=== PATIENT | male | born 1945 | race Caucasian/White ===

== ENCOUNTER 2017-12-15 10:00 | Outpatient (CLI) ==
[2016-03-09 18:05] VITALS: BMI 31.5
[2017-12-15] MEDS ORDERED: PROLIA SUBCUT STA (10:11)
[2017-12-15 10:14] VITALS: BP 125/74; TEMP 98.1
== END 2017-12-15 10:01 | disposition home or self-care (01) ==
LOC: OPMED 10:00
PROVIDERS: ATTEND Internal Medicine
DX: M81.0 Age-related osteoporosis without current pathological fracture (principal)
CPT/HCPCS: 96372

== ENCOUNTER 2018-06-23 13:10 | Outpatient (CLI) | payer OTHER ==
[2016-03-09 18:05] VITALS: BMI 31.5
[2018-06-23 13:46] VITALS: BP 112/63; TEMP 98.3
[2018-06-23] MEDS ORDERED: PROLIA SUBCUT STA (13:50)
== END 2018-06-23 13:11 | disposition home or self-care (01) ==
LOC: OPMED 13:10
PROVIDERS: ATTEND Internal Medicine
DX: M81.0 Age-related osteoporosis without current pathological fracture (principal)
CPT/HCPCS: 96372

== ENCOUNTER 2018-10-28 06:30 | Outpatient (CLI) | payer OTHER ==
[2016-03-09 18:05] VITALS: BMI 31.5
[2018-10-28] MEDS ORDERED: DOBUTAMINE 500 MG-D5W 250 ML 250 ML IV ONE (07:33)
[2018-10-28] MEDS ORDERED: ATROPINE SULFATE PFS ONE (07:33)
[2018-10-28] MEDS ORDERED: DOBUTAMINE 500 MG-D5W 250 ML 500 MG in PREMIX 250 ML D5W 1 BAG IV SCH (08:36)
--- NOTE | 2018-10-31 09:52 | ECHO2D ---
Date of Exam: 10/28/18 Ordering Physician: DR. OLY LORENZANA Room #: OP Reason for Echo: SOB, PAC, SURGICAL CLEARANCE M-Mode Normal Adult Results LV Dimensions Normal Adult Results AoV Opening excursions >1.6 >1.6 LVEDD-base- 3.5-5.8 6.5 Ao root dimensions 2.0-3.7 3.6 LVESD-base- 3.1-4.6 L. Atrium dimensions 1.9-3.8 5.9 Post. Wall thickness 0.8-1.1 1.4 IV septum (thickness) 0.7-1.2 1.5 Post. Wall excursion 0.72-1.3 NORMAL Septal motion NORMAL Systolic motion R. Ventricular cavity 1.5-2.0 NORMAL LVEF 60% 58% Paradoxical septal wall motion NORMAL 2-D : NORMAL LEFT VENTRICULAR CONTRACTILITY--ENLARGED LEFT VENTRICLE AND LEFT ATRIAL CAVITIES, NO EFFUSION, NO THROMBUS, NORMAL VALVES M-MODE: MV: NORMAL AV: NORMAL TV: NORMAL PV: CHAMBER SIZE: ENLARGED LEFT ATRIAL AND LEFT VENTRICLE CAVITY WALL MOTION: NORMAL PERICARDIUM: NORMAL INTERPRETATION: 1. LEFT VENTRICULAR HYPERTROPHY WITH ENLARGED LEFT ATRIAL CAVITY 2. ENLARGED LEFT VENTRICLE CAVITY 3. NORMAL LEFT VENTRICLE CONTRACTILITY 4. NORMAL VALVES MTDD
--- NOTE | 2018-10-31 10:01 | DOBSTECHO ---
Date of Test: 10/28/18 Ordering Physician: DR. OLY LORENZANA Occupation: RETIRED Reason for Examination: SOB, PAC, SURGICAL CLEARANCE Current Medications: DICLOFENAC, CARTIA, ATORVASTATIN, SPIRIVA, TAMSULOSIN, PANTOPREZOLE, OXYBUTYNIN Height: 75" Weight: 240 LBS Target Heart Rate: 124/147 S-T Segment Stage Time HR BPM BP MMHG Rhythm +/- Elevation Depression Symptoms Control Sitting 50 BPM 132/76 SR X NONE Dobutamine 250mg/D5W X 5cmg/KG/mn X 10cmg/KG/mn 3:00 61 BPM SR X NONE 15cmg/KG/mn 2:00 72 BPM 120/68 SR X NONE 20cmg/KG/mn 2:00 79 BPM 132/60 SR X NONE 25cmg/KG/mn 2:00 90 BPM SR X NONE 30cmg/KG/mn 2:00 96 BPM 128/62 SR X NONE 35cmg/KG/mn 1:08 108 BPM SR X NONE 40cmg/KG/mn 3 MIN POST INFUSION z 98 BPM 130/70 SR X NONE 6 MIN POST INFUSION z 84 BPM SR X NONE DURATION OF INFUSION 12:08 MAXIMUM HEART RATE REACHED 108 BPM Interpretation: 1. NO EVIDENCE OF ISCHEMIA BY ST-T WAVE CHANGES FROM RESTING HEART RATE 50 BPM TO 108 BPM WITH DOBUTAMINE INFUSION 2. NO CHEST PAIN OR DISCOMFORT 3. NORMAL LEFT VENTRICULAR CONTRACTILITY--RESTING AND WITH DOBUTAMINE INFUSION MTDD
--- NOTE | 2018-10-31 10:05 | ECHOSTRESS ---
Date of Exam: 10/28/18 Ordering Physician: DR. OLY LORENZANA Reason for Echo: SOB, PAC, SURGICAL CLEARANCE, DOBUTAMINE STRESS --NO ISCHEMIA M-Mode Normal Adult Results LV Dimensions Normal Adult Results AoV Opening excursions >1.6 LVEDD-base- 3.5-5.8 Ao root dimensions 2.0-3.7 LVESD-base- 3.1-4.6 L. Atrium dimensions 1.9-3.8 Post. Wall thickness 0.8-1.1 IV septum (thickness) 0.7-1.2 Post. Wall excursion 0.72-1.3 Septal motion Systolic motion R. Ventricular cavity 1.5-2.0 LVEF 60% Paradoxical septal wall motion 2-D: NORMAL LEFT VENTRICULAR CONTRACTILITY--RESTING AND WITH DOBUTAMINE INFUSION M-MODE: MV: AV: TV: PV: CHAMBER SIZE: WALL MOTION: NORMAL LEFT VENTRICULAR CONTRACTILITY--RESTING AND WITH DOBUTAMINE INFUSION PERICARDIUM: INTERPRETATION: 1. NORMAL LEFT VENTRICULAR CONTRACTILITY--RESTING AND WITH DOBUTAMINE INFUSION MTDD
== END 2018-10-28 06:31 | disposition home or self-care (01) ==
LOC: CAR 06:30
PROVIDERS: ATTEND Internal Medicine
DX: Z01.810 Encounter for preprocedural cardiovascular examination (principal); R06.02 Shortness of breath
CPT/HCPCS: 93005; 93010

== ENCOUNTER 2019-02-03 09:09 | Outpatient (CLI) | payer OTHER ==
[2016-03-09 18:05] VITALS: BMI 31.5
== END 2019-02-03 09:27 | disposition short-term general hospital (02) ==
LOC: AMBL 09:09
PROVIDERS: ATTEND Emergency Medicine
DX: R41.82 Altered mental status, unspecified (principal); T40.2X5A Adverse effect of other opioids, initial encounter; Z98.890 Other specified postprocedural states

== ENCOUNTER 2020-12-06 11:02 | Inpatient (IN) ==
[2020-12-06] MEDS ORDERED: VENTOLIN HFA (PER PUFF-WITH SPACER) IH STA (11:43)
[2020-12-06 12:05] LABS: BASOPHILS % (AUTO) 0.2 % (0.0-3.0); EOSINOPHILS % (AUTO) 0.1 % (0.0-7.0); HEMATOCRIT 43.5 % (42.0-52.0); HEMOGLOBIN 14.9 g/dl (14.0-18.0); IMMATURE GRANULOCYTE % (AUTO) 0.2 % (0.0-5.0); LYMPHOCYTES # (AUTO) 0.6 K/uL (0.60-3.4); LYMPHOCYTES % (AUTO) 4.8 (10.0-50.0); MEAN CORPUSCULAR HEMOGLOBIN 31.4 pg (27.0-31.0); MEAN CORPUSCULAR HGB CONC 34.3 (31.8-35.4); MEAN CORPUSCULAR VOLUME 91.8 fl (80.0-94.0); MONOCYTES # (AUTO) 0.9 K/uL (0.4-2.0); NEUTROPHILS # (AUTO) 10.6 K/ul (2.0-6.9); NEUTROPHILS % (AUTO) 87.7 % (42.2-75.2); PLATELET COUNT 156 10^3/uL (140-440); RDW COEFFICIENT OF VARIATION 13.7 % (11.6-14.8); RED BLOOD COUNT 4.74 10^6/ul (4.70-6.10); WHITE BLOOD COUNT 12.07 K/ul (4.2-10.2)
[2020-12-06 12:10] LABS: ABG PH 7.45 (7.35-7.45)
[2020-12-06 12:17] LABS: ALANINE AMINOTRANSFERASE 22.7 U/L (0-50); ALBUMIN 3.81 g/dL (3.5-5.0); ALKALINE PHOSPHATASE 101.9 U/L (56-119); ASPARTATE AMINO TRANSFERASE 26.4 U/L (17-59); BILIRUBIN,TOTAL 1.14 mg/dL (0.2-1.3); BLOOD UREA NITROGEN 26.1 mg/dL (9-20); CALCIUM 9.53 mg/dL (8.4-10.2); CARBON DIOXIDE 25.7 mmol/L (22-30.0); CHLORIDE 103.8 mmol/L (98-107); CREATINE KINASE 42.7 U/L (55-170); CREATININE 0.84 mg/dL (0.60-1.10); POTASSIUM 3.97 mmol/L (3.5-5.1); SODIUM 137.9 mmol/L (134.5-145); TOTAL PROTEIN 6.27 g/dL (6.3-8.2)
[2020-12-06 12:31] LABS: TROPONIN I < 0.012 ng/ml (0.0000-0.120)
[2020-12-06 12:39] LABS: ERYTHROCYTE SEDIMENTATION RATE 2 mm/hr (0-15)
[2020-12-06] MEDS ORDERED: SODIUM CHLORIDE 1,000 ML IV STA (13:33)
--- NOTE | 2020-12-06 14:36 | CT ---
EXAM: CTA CHEST HISTORY: Shortness of breath TECHNIQUE: CTA chest with intravenous contrast. PE protocol. Multiplanar images were provided with 3-D reconstructions. COMPARISON: None FINDINGS: No pulmonary arterial filling defect. The caliber of the pulmonary arteries is dilated with the righ t main vessel measuring 3.6 cm suggesting a degree of pulmonary arterial hypertension. There is at l east mild atherosclerotic disease. Cardiomegaly is present. There is no pericardial effusion. Prom inent hilar lymph nodes are nonspecific. The lungs reveal severe infiltrates/consolidations on the right more noticeable in the lower lobe and otherwise patchy infiltrates bilaterally becoming more moderate in the left base. There is at least mild central vascular congestion. No pleural fluid or pneumothorax is seen. Bones reveal degenerative changes of the spine with mild scoliosis. Liver demonstrates a few scatter ed low attenuation lesions which appear stable since prior CT abdomen and pelvis dated 10/14/2012, champ arevalo representing cysts. IMPRESSION: 1. No pulmonary arterial thromboembolism. A component of pulmonary arterial hypertension is likely. 2. Severe consolidations/infiltrates especially involving the right lower lobe suggesting pneumonia. Underlying atelectasis may be a contributor. 3. Cardiomegaly. 4. Atherosclerosis. All CT scans are performed using dose optimization techniques as appropriate to the performed exam an d include at least one of the following: Automated exposure control, adjustment of the mA and/or kV according t o size, and the use of iterative reconstruction technique.
[2020-12-06] MEDS ORDERED: ZITHROMAX 500 MG in SODIUM CHLORIDE 250 ML IV STA (14:44)
[2020-12-06] MEDS: ROCEPHIN 1 GM/50 ML D5W 1 GM/50 ML BAG IV SCH (15:12)
[2020-12-06 15:20] LABS: BILIRUBIN,URINE Negative (NEGATIVE); CLARITY,URINE Clear (CLEAR); COLOR,URINE Amber (YELLOW); GLUCOSE, URINE (UA) Negative (NEGATIVE); KETONES,URINE Trace (NEGATIVE); LEUKOCYTE ESTERASE ,URINE Negative (NEGATIVE); NITRITE,URINE Negative (NEGATIVE); PH,URINE 5.5 (5-9); PROTEIN,URINE Negative (NEGATIVE); URINE, BLOOD Negative (NEGATIVE)
[2020-12-06] MEDS ORDERED: SOLU-MEDROL 125 MG IVP STA (15:21)
[2020-12-06] MEDS ORDERED: ZOFRAN 4 MG/2 ML IVP PRN (15:21)
[2020-12-06] MEDS ORDERED: ZITHROMAX PO STA (15:21)
[2020-12-06 15:25] LABS: SQUAMOUS EPITHELIAL CELL,UR NOT PRESENT (0-5)
[2020-12-06 15:26] LABS: MUCUS,URINE 2+ (NOT PRESENT); URINE WBC, MICROSCOPIC 0-2 (0-2)
[2020-12-06 15:30] LABS: AMPHETAMINE SCREEN,URINE NEGATIVE (NEGATIVE); BARBITURATE SCREEN,URINE NEGATIVE (NEGATIVE); BENZODIAZEPINES SCREEN,URINE NEGATIVE (NEGATIVE); CANNABINOID SCREEN,URINE NEGATIVE (NEGATIVE); COCAIN SCREEN,URINE NEGATIVE (NEGATIVE); METHADONE URINE SCREEN NEGATIVE (NEGATIVE); METHAMPHETAMINES SCREEN,URINE NEGATIVE (NEGATIVE); OPIATE SCREEN,URINE NEGATIVE (NEGATIVE); OXYCODONE URINE SCREEN NEGATIVE (NEGATIVE); PHENCYCLIDINE SCREEN,URINE NEGATIVE (NEGATIVE); PROPOXYPHENE URINE SCREEN NEGATIVE (NEGATIVE); TRICYCLIC ANTIDEPRESSANTS URIN NEGATIVE (NEGATIVE)
[2020-12-06] MEDS: SODIUM CHLORIDE 0.9%-KCL 20 MEQ 1,000 ML IV SCH (17:09)
[2020-12-06] MEDS: LOVENOX SUBCUT SCH ×2 (17:15→17:17)
[2020-12-06 17:50] VITALS: BMI 31.7
[2020-12-06] MEDS: VENTOLIN HFA (PER PUFF-WITH SPACER) IH SCH (19:45)
[2020-12-06] MEDS ORDERED: TYLENOL PO PRN (19:53)
[2020-12-06] MEDS: TAMBOCOR PO SCH (20:14)
[2020-12-06] MEDS: MYRBETRIQ PO SCH (20:14)
[2020-12-06] MEDS: DITROPAN PO SCH (20:14)
[2020-12-06] MEDS ORDERED: NEURONTIN PO SCH (21:00)
[2020-12-06] MEDS ORDERED: XARELTO PO SCH (21:00)
[2020-12-06] MEDS ORDERED: NEURONTIN PO STA (22:33)
[2020-12-07] MEDS: VENTOLIN HFA (PER PUFF-WITH SPACER) IH SCH ×4 (04:45→19:17)
[2020-12-07 05:18] LABS: HEMATOCRIT 39.7 % (42.0-52.0); HEMOGLOBIN 13.5 g/dl (14.0-18.0); IMMATURE GRANULOCYTE % (AUTO) 0.3 % (0.0-5.0); LYMPHOCYTES # (AUTO) 0.7 K/uL (0.60-3.4); LYMPHOCYTES % (AUTO) 7.4 (10.0-50.0); MEAN CORPUSCULAR VOLUME 91.3 fl (80.0-94.0); MONOCYTES # (AUTO) 0.3 K/uL (0.4-2.0); MONOCYTES % (AUTO) 3.1 (0-10); NEUTROPHILS # (AUTO) 8.1 K/ul (2.0-6.9); NEUTROPHILS % (AUTO) 89.2 % (42.2-75.2); PLATELET COUNT 154 10^3/uL (140-440); RDW COEFFICIENT OF VARIATION 13.7 % (11.6-14.8); RED BLOOD COUNT 4.35 10^6/ul (4.70-6.10); WHITE BLOOD COUNT 9.11 K/ul (4.2-10.2)
[2020-12-07 05:36] LABS: ALANINE AMINOTRANSFERASE 20.2 U/L (0-50); ALBUMIN 3.49 g/dL (3.5-5.0); ALKALINE PHOSPHATASE 88.3 U/L (56-119); BILIRUBIN,TOTAL 0.97 mg/dL (0.2-1.3); BLOOD UREA NITROGEN 20.3 mg/dL (9-20); CALCIUM 9.11 mg/dL (8.4-10.2); CARBON DIOXIDE 24.7 mmol/L (22-30.0); CHLORIDE 106.4 mmol/L (98-107); CREATININE 0.69 mg/dL (0.60-1.10); GLUCOSE 141.8 mg/dL (74-106); POTASSIUM 4.29 mmol/L (3.5-5.1); SODIUM 135.2 mmol/L (134.5-145); TOTAL PROTEIN 6.01 g/dL (6.3-8.2)
[2020-12-07] MEDS: SODIUM CHLORIDE 0.9%-KCL 20 MEQ 1,000 ML IV SCH (06:02)
[2020-12-07] MEDS: PROTONIX PO SCH (06:02)
[2020-12-07] MEDS ORDERED: CALCIUM 500 + VIT D 5 MCG (200 IU) TABLET PO SCH (09:00)
[2020-12-07] MEDS ORDERED: NON-FORMULARY MEDICATION (Umeclidinium [Incruse Ellipta] 62.5 mcg/actuation Blister With D IH SCH ×2 (09:00)
[2020-12-07] MEDS ORDERED: CALCIUM PHOSPHATE PO SCH (09:00)
[2020-12-07] MEDS ORDERED: ROCEPHIN 1 GM/50 ML D5W 1 GM/50 ML BAG IV SCH (09:00)
[2020-12-07] MEDS ORDERED: NEURONTIN PO SCH (09:00)
[2020-12-07] MEDS ORDERED: [UNRECOGNIZED DRUG - OTHER] PO SCH (09:00)
[2020-12-07] MEDS ORDERED: LUMIGAN 0.03% EACHEYE SCH (09:00)
[2020-12-07] MEDS ORDERED: BIMATOPROST 0.01% OP SCH (09:00)
[2020-12-07] MEDS ORDERED: NON-FORMULARY MEDICATION (Fluticasone Furoate-Vilanterol [Breo Ellipta] 200-25 mcg/dose Bl IH SCH ×2 (09:00)
[2020-12-07] MEDS: CALCIUM 500 + VIT D 5 MCG (200 IU) TABLET PO SCH (09:13)
[2020-12-07] MEDS: NEURONTIN PO SCH ×3 (09:14→20:47)
[2020-12-07] MEDS: TAMBOCOR PO SCH ×2 (09:14→20:48)
[2020-12-07] MEDS: LIPITOR PO SCH (09:14)
[2020-12-07] MEDS: DITROPAN PO SCH ×2 (09:14→20:48)
[2020-12-07] MEDS: MULTIVITAMIN TABLET PO SCH (09:14)
[2020-12-07] MEDS: CARDIZEM CD PO SCH (09:15)
[2020-12-07] MEDS: MYRBETRIQ PO SCH ×2 (09:15→20:48)
[2020-12-07] MEDS: XARELTO PO SCH (09:15)
[2020-12-07] MEDS: ROCEPHIN 1 GM/50 ML D5W 1 GM/50 ML BAG IV SCH (09:21)
[2020-12-07] MEDS: ZITHROMAX PO SCH (14:05)
[2020-12-07] MEDS: SPIRIVA IH SCH (14:05)
[2020-12-07] MEDS: SYMBICORT 160-4.5 MCG INHALER IH SCH (21:32)
[2020-12-07] MEDS: PHENERGAN WITH CODEINE 6.25/10 MG/5 ML PO PRN (21:38)
[2020-12-07] MEDS: SOLU-MEDROL 125 MG IVP SCH (21:38)
[2020-12-08] MEDS: SOLU-MEDROL 125 MG IVP SCH ×5 (01:21→23:53)
[2020-12-08] MEDS: VENTOLIN HFA (PER PUFF-WITH SPACER) IH SCH ×4 (05:00→19:20)
[2020-12-08 05:21] LABS: HEMATOCRIT 39.7 % (42.0-52.0); HEMOGLOBIN 13.5 g/dl (14.0-18.0); IMMATURE GRANULOCYTE # (AUTO) 0.1 (0.0-1.0); IMMATURE GRANULOCYTE % (AUTO) 0.6 % (0.0-5.0); LYMPHOCYTES # (AUTO) 0.7 K/uL (0.60-3.4); LYMPHOCYTES % (AUTO) 7.4 (10.0-50.0); MEAN CORPUSCULAR HEMOGLOBIN 31.1 pg (27.0-31.0); MEAN CORPUSCULAR VOLUME 91.5 fl (80.0-94.0); MONOCYTES # (AUTO) 0.3 K/uL (0.4-2.0); MONOCYTES % (AUTO) 3.3 (0-10); NEUTROPHILS % (AUTO) 88.7 % (42.2-75.2); PLATELET COUNT 164 10^3/uL (140-440); RDW COEFFICIENT OF VARIATION 13.9 % (11.6-14.8); RED BLOOD COUNT 4.34 10^6/ul (4.70-6.10); WHITE BLOOD COUNT 9.02 K/ul (4.2-10.2)
[2020-12-08] MEDS: PROTONIX PO SCH (05:34)
[2020-12-08] MEDS: PHENERGAN WITH CODEINE 6.25/10 MG/5 ML PO PRN ×3 (05:35→21:55)
[2020-12-08 05:37] LABS: ALANINE AMINOTRANSFERASE 20.3 U/L (0-50); ALBUMIN 3.59 g/dL (3.5-5.0); ALKALINE PHOSPHATASE 105.9 U/L (56-119); ASPARTATE AMINO TRANSFERASE 28.5 U/L (17-59); BILIRUBIN,TOTAL 0.51 mg/dL (0.2-1.3); BLOOD UREA NITROGEN 22.7 mg/dL (9-20); CALCIUM 9.28 mg/dL (8.4-10.2); CARBON DIOXIDE 25.1 mmol/L (22-30.0); CHLORIDE 104.3 mmol/L (98-107); CREATININE 0.77 mg/dL (0.60-1.10); GLUCOSE 158.6 mg/dL (74-106); POTASSIUM 4.31 mmol/L (3.5-5.1); SODIUM 135.9 mmol/L (134.5-145); TOTAL PROTEIN 6.14 g/dL (6.3-8.2)
[2020-12-08] MEDS: SPIRIVA IH SCH (08:37)
[2020-12-08] MEDS: ROCEPHIN 1 GM/50 ML D5W 1 GM/50 ML BAG IV SCH (08:38)
[2020-12-08] MEDS: SYMBICORT 160-4.5 MCG INHALER IH SCH ×2 (08:38→21:09)
[2020-12-08] MEDS: NEURONTIN PO SCH ×3 (08:38→21:08)
[2020-12-08] MEDS: MYRBETRIQ PO SCH ×2 (08:38→21:08)
[2020-12-08] MEDS: CALCIUM 500 + VIT D 5 MCG (200 IU) TABLET PO SCH (08:38)
[2020-12-08] MEDS: MULTIVITAMIN TABLET PO SCH (08:39)
[2020-12-08] MEDS: DITROPAN PO SCH ×2 (08:39→21:08)
[2020-12-08] MEDS: TAMBOCOR PO SCH ×2 (08:39→21:08)
[2020-12-08] MEDS: LIPITOR PO SCH (08:39)
[2020-12-08] MEDS: ZITHROMAX PO SCH (08:39)
[2020-12-08] MEDS: CARDIZEM CD PO SCH (08:39)
[2020-12-08] MEDS: XARELTO PO SCH (08:40)
[2020-12-08] MEDS: COLACE PO PRN ×2 (12:25→21:07)
[2020-12-08] MEDS: SODIUM CHLORIDE 0.9%-KCL 20 MEQ 1,000 ML IV SCH ×2 (15:17)
[2020-12-08] MEDS: LUMIGAN 0.03% EACHEYE SCH (21:09)
[2020-12-09] MEDS: SODIUM CHLORIDE 0.9%-KCL 20 MEQ 1,000 ML IV SCH (04:22)
[2020-12-09 04:29] LABS: BASOPHILS % (AUTO) 0.1 % (0.0-3.0); HEMATOCRIT 40.1 % (42.0-52.0); HEMOGLOBIN 13.8 g/dl (14.0-18.0); IMMATURE GRANULOCYTE # (AUTO) 0.1 (0.0-1.0); IMMATURE GRANULOCYTE % (AUTO) 0.6 % (0.0-5.0); LYMPHOCYTES # (AUTO) 0.9 K/uL (0.60-3.4); LYMPHOCYTES % (AUTO) 8.9 (10.0-50.0); MEAN CORPUSCULAR HEMOGLOBIN 31.1 pg (27.0-31.0); MEAN CORPUSCULAR HGB CONC 34.4 (31.8-35.4); MEAN CORPUSCULAR VOLUME 90.3 fl (80.0-94.0); MONOCYTES # (AUTO) 0.4 K/uL (0.4-2.0); MONOCYTES % (AUTO) 3.8 (0-10); NEUTROPHILS # (AUTO) 8.3 K/ul (2.0-6.9); NEUTROPHILS % (AUTO) 86.6 % (42.2-75.2); PLATELET COUNT 181 10^3/uL (140-440); RDW COEFFICIENT OF VARIATION 13.8 % (11.6-14.8); RED BLOOD COUNT 4.44 10^6/ul (4.70-6.10); WHITE BLOOD COUNT 9.55 K/ul (4.2-10.2)
[2020-12-09 04:32] LABS: ABG PH 7.42 (7.35-7.45)
[2020-12-09] MEDS: VENTOLIN HFA (PER PUFF-WITH SPACER) IH SCH (04:40)
[2020-12-09 04:44] LABS: ALANINE AMINOTRANSFERASE 22.4 U/L (0-50); ALBUMIN 3.58 g/dL (3.5-5.0); ALKALINE PHOSPHATASE 117.1 U/L (56-119); ASPARTATE AMINO TRANSFERASE 25.9 U/L (17-59); BILIRUBIN,TOTAL 0.59 mg/dL (0.2-1.3); BLOOD UREA NITROGEN 22.8 mg/dL (9-20); CALCIUM 8.68 mg/dL (8.4-10.2); CARBON DIOXIDE 21.9 mmol/L (22-30.0); CREATININE 0.62 mg/dL (0.60-1.10); GLUCOSE 144.6 mg/dL (74-106); POTASSIUM 3.74 mmol/L (3.5-5.1); SODIUM 136.8 mmol/L (134.5-145); TOTAL PROTEIN 6.2 g/dL (6.3-8.2)
[2020-12-09] MEDS: SOLU-MEDROL 125 MG IVP SCH ×3 (05:37→19:43)
[2020-12-09] MEDS: PROTONIX PO SCH ×2 (05:37→17:13)
[2020-12-09] MEDS: PHENERGAN WITH CODEINE 6.25/10 MG/5 ML PO PRN ×3 (07:26→21:14)
--- NOTE | 2020-12-09 08:29 | DI ---
EXAM: Frontal chest HISTORY: Shortness of breath FINDINGS: Compared to 03/09/2016. Cardiomegaly is again seen. There is mild central vascular conge stion suggested. Probable trace pleural effusions. Patchy bibasilar density may represent atelectas is. No visible pneumothorax. IMPRESSION: 1. Cardiomegaly and vascular congestion. Tiny pleural effusions.
[2020-12-09] MEDS: ROCEPHIN 1 GM/50 ML D5W 1 GM/50 ML BAG IV SCH (09:00)
[2020-12-09] MEDS: NEURONTIN PO SCH ×3 (09:00→20:34)
[2020-12-09] MEDS: LIPITOR PO SCH (09:00)
[2020-12-09] MEDS: TAMBOCOR PO SCH ×2 (09:01→20:34)
[2020-12-09] MEDS: CARDIZEM CD PO SCH (09:01)
[2020-12-09] MEDS: CALCIUM 500 + VIT D 5 MCG (200 IU) TABLET PO SCH (09:01)
[2020-12-09] MEDS: MYRBETRIQ PO SCH ×2 (09:01→20:33)
[2020-12-09] MEDS: MULTIVITAMIN TABLET PO SCH (09:01)
[2020-12-09] MEDS: DITROPAN PO SCH ×2 (09:01→20:33)
[2020-12-09] MEDS: SPIRIVA IH SCH (09:02)
[2020-12-09] MEDS: SYMBICORT 160-4.5 MCG INHALER IH SCH (09:04)
[2020-12-09] MEDS: XARELTO PO SCH (09:05)
--- NOTE | 2020-12-09 10:49 | PCM.PROG ---
Attending Provider: ATTENDING PROVIDER: Dr. OLY LORENZANA This patient is seen with Cate Pfeiffer, Nurse Practitioner. DATE OF SERVICE: 12/09/20 SUBJECTIVE: This 75 year old /WHITE M was hospitalized 12/06/20. Resting comfortably in bed. Still significantly short of breath and wheezing. He has b een eating well. Encouraged to get up in the room. REVIEW OF SYSTEMS: CONSTITUTIONAL: No night sweats. No fatigue, malaise, lethargy. No fever or chills. HEENT: Eyes: No visual changes. No eye pain. No eye discharge. ENT: No runny nose. No epistaxis. No sinus pain. No odynophagia. No congestion. RESPIRATORY: Cough, wheezing and shortness of breath. no congestion. No he moptysis. CARDIOVASCULAR: No angina symptoms. No CHF symptoms. No atypical chest pain for CAD. No palpitations. No orthopnea. GASTROINTESTINAL: No abdominal pain. No nausea or vomiting. No diarrhea or constipation. No hematemesis. No hematochezia. GENITOURINARY: No urgency. No frequency. No dysuria. No hematuria. No obstructive symptoms. No discharge. No pain. No significant abnormal bleeding. MUSCULOSKELETAL: No musculoskeletal pain; no joint swelling. NEUROLOGICAL: Awake, alert, oriented to time, place and person. No headache. No neck pain. No syncope. No seizures. No dizziness. PSYCHIATRIC: Not anxious. No depression. No suicidal thoughts. No homicidal thoughts. SKIN: No rash. No lesions. No wounds. ENDOCRINE: No unexplained weight loss. No weight gain. HEMATOLOGIC/LYMPHATIC: No anemia. No purpura. No petechiae. No prolonged or excessive bleeding. No palpable lymph nodes. PHYSICAL EXAMINATION: GENERAL: The patient is awake, alert and oriented, lying/sitting in bed in no distress. VITAL SIGNS: Temperature 98.2 F, Pulse 59, Respiratory Rate 20, BP 122/66, Pulse Ox 98% HEENT: Head normocephalic, atraumatic. Eyes: Extraocular muscles are intact. Pupils are equal, round and reactive to light and accommodation. Ears: No lesions. Nose appeared normal. Throat: No exudate or erythema. NECK: Supple. No JVD, no carotid bruit. No lymphadenopathy or thyromegaly. LUNGS: Diminished breath sounds with bilateral inspiratory and expiratory wheezing. Clear to auscultation. Percussion note normal. Chest symmetrical. HEART: S1, S2, no S3. No murmurs. No cyanosis or clubbing. No ascites. Pulses: Dorsalis pedis and posterior tibial pulses +1 to +2 both sides. ABDOMEN: Soft. Non-tender. Bowel sounds active. No CVA tenderness. No mass felt. EXTREMITIES: No edema. Full range of motion of all extremities, equal. NEUROLOGIC: No focal deficit. Cranial nerves II through XII are grossly intact. No headache. No double vision. SKIN: Not dry. Intact. Turgor-normal. LYMPHATIC: No palpable lymph nodes/no lymphedema. MUSCULOSKELETAL: Normal joints with no swelling. Muscle tone is normal. LAB REVIEW: 12/09/20 04:20 12/09/20 04:20 12/09/20 04:20: Sodium 136.8, Potassium 3.74, Chloride 108.0 H, Carbon Dioxide 21.9 L, Anion Gap 10.64, BUN 22.8 H, Creatinine 0.62, Estimated GFR (MDRD) 126.00, BUN/Creatinine Ratio 36.77, Glucose 144.6 H, Calcium 8.68, Total Bilirubin 0.59, AST 25.9, ALT 22.4, Alkaline Phosphatase 117.1, Total Protein 6.20 L, Albumin 3.58, Globulin 2.62, Albumin/Globulin Ratio 1.36 12/09/20 04:20: WBC 9.55, RBC 4.44 L, Hgb 13.8 L, Hct 40.1 L, MCV 90.3, MCH 31.1 H, MCHC 34.4, RDW Coeff of Amee 13.8, Plt Count 181, Immature Gran % (Auto) 0.6, Neut % (Auto) 86.6 H, Lymph % (Auto) 8.9 L, [place] % (Auto) 3.8, Eos % (Auto) 0.0, Baso % (Auto) 0.1, Neut # (Auto) 8.3 H, Lymph # (Auto) 0.9, [place] # (Auto) 0.4, Eos # (Auto) 0.0, Baso # (Auto) 0.0, Immature Gran # (Auto) 0.1 12/09/20 03:30: Puncture Site Lb, Base Excess -3.1 L, O2 Saturation 88.3 L, ABG pH 7.42, ABG pCO2 33.0 L, ABG pO2 54.0 L*, ABG HCO3 21.4, ABG Total CO2 22.4, James Test +, Hemoglobin 0.5, Oxyhemoglobin 88.3 L, Carboxyhemoglobin 1.9 H, Total Hemoglobin 14.3, FiO2 % 21.0 ASSESSMENT: Please see below. 1. Right lower lobe pneumonia. 2. Acute respiratory failure. PLAN: 1. Increase Protonix to b.i.d. 2. D/C IV fluids. Plan and coordination of the patient's care discussed in the presence of Admissions Clerk and nurse. CONDITION: Stable SCRIBED BY: DARIN WOODALL [employer] scribed while in presence of service performed by Mary Lorenzana/Cate Pfeiffer APRN on 12/09/20 ([id number])
[2020-12-09] MEDS: COLACE PO PRN (13:35)
[2020-12-09] MEDS: DUONEB NEB SCH ×2 (13:57→20:05)
[2020-12-09] MEDS: TYLENOL PO PRN (13:59)
[2020-12-09] MEDS ORDERED: LASIX IVP STA (14:10)
[2020-12-09] MEDS: MYLANTA SUSP PO PRN (14:42)
[2020-12-09] MEDS ORDERED: LASIX ONE (17:20)
[2020-12-09] MEDS: PULMICORT 1 MG/2 ML NEB SCH (20:05)
[2020-12-09] MEDS: LUMIGAN 0.03% EACHEYE SCH (21:14)
[2020-12-10] MEDS: SOLU-MEDROL 125 MG IVP SCH ×3 (00:36→12:11)
[2020-12-10] MEDS: TYLENOL PO PRN (04:43)
[2020-12-10] MEDS: DUONEB NEB SCH ×2 (04:50→12:52)
[2020-12-10] MEDS: PULMICORT 1 MG/2 ML NEB SCH (04:50)
[2020-12-10 05:18] LABS: BASOPHILS % (AUTO) 0.2 % (0.0-3.0); HEMATOCRIT 41.2 % (42.0-52.0); HEMOGLOBIN 14.1 g/dl (14.0-18.0); IMMATURE GRANULOCYTE # (AUTO) 0.2 (0.0-1.0); IMMATURE GRANULOCYTE % (AUTO) 1.7 % (0.0-5.0); LYMPHOCYTES # (AUTO) 0.9 K/uL (0.60-3.4); LYMPHOCYTES % (AUTO) 9.5 (10.0-50.0); MEAN CORPUSCULAR HEMOGLOBIN 30.9 pg (27.0-31.0); MEAN CORPUSCULAR HGB CONC 34.2 (31.8-35.4); MEAN CORPUSCULAR VOLUME 90.4 fl (80.0-94.0); MONOCYTES # (AUTO) 0.4 K/uL (0.4-2.0); NEUTROPHILS # (AUTO) 8.2 K/ul (2.0-6.9); NEUTROPHILS % (AUTO) 84.6 % (42.2-75.2); PLATELET COUNT 218 10^3/uL (140-440); RDW COEFFICIENT OF VARIATION 13.9 % (11.6-14.8); RED BLOOD COUNT 4.56 10^6/ul (4.70-6.10); WHITE BLOOD COUNT 9.62 K/ul (4.2-10.2)
[2020-12-10 05:34] LABS: ALANINE AMINOTRANSFERASE 29.2 U/L (0-50); ALBUMIN 3.62 g/dL (3.5-5.0); ALKALINE PHOSPHATASE 106.7 U/L (56-119); ASPARTATE AMINO TRANSFERASE 27.1 U/L (17-59); BILIRUBIN,TOTAL 0.55 mg/dL (0.2-1.3); BLOOD UREA NITROGEN 28.1 mg/dL (9-20); CALCIUM 9.11 mg/dL (8.4-10.2); CARBON DIOXIDE 25.5 mmol/L (22-30.0); CHLORIDE 104.6 mmol/L (98-107); CREATININE 0.67 mg/dL (0.60-1.10); GLUCOSE 160.5 mg/dL (74-106); POTASSIUM 3.7 mmol/L (3.5-5.1); SODIUM 138.5 mmol/L (134.5-145); TOTAL PROTEIN 6.14 g/dL (6.3-8.2)
[2020-12-10] MEDS: PROTONIX PO SCH (05:40)
[2020-12-10 05:53] VITALS: BP 123/70; TEMP 97.4
[2020-12-10] MEDS ORDERED: LASIX IVP STA (08:26)
[2020-12-10] MEDS ORDERED: ROCEPHIN 1 GM/50 ML D5W 1 GM/50 ML BAG IV STA (08:27)
[2020-12-10] MEDS: MULTIVITAMIN TABLET PO SCH (08:54)
[2020-12-10] MEDS: MYRBETRIQ PO SCH (08:54)
[2020-12-10] MEDS: NEURONTIN PO SCH (08:54)
[2020-12-10] MEDS: CALCIUM 500 + VIT D 5 MCG (200 IU) TABLET PO SCH (08:55)
[2020-12-10] MEDS: CARDIZEM CD PO SCH (08:55)
[2020-12-10] MEDS: COLACE PO PRN (08:55)
[2020-12-10] MEDS: DITROPAN PO SCH (08:55)
[2020-12-10] MEDS: TAMBOCOR PO SCH (08:55)
[2020-12-10] MEDS: LIPITOR PO SCH (08:55)
[2020-12-10] MEDS: XARELTO PO SCH (08:56)
[2020-12-10] MEDS: SPIRIVA IH SCH (08:56)
--- NOTE | 2020-12-10 09:02 | PCM.PROG ---
Attending Provider: ATTENDING PROVIDER: Dr. OLY LORENZANA This patient is seen with Cate Pfeiffer, Nurse Practitioner. DATE OF SERVICE: 12/10/20 SUBJECTIVE: This 75 year old /WHITE M was hospitalized 12/06/20. The patient is sitting on side of bed resting comfortably. Shortness of breath has improved. He is eating well. Wheezing has resolved. REVIEW OF SYSTEMS: CONSTITUTIONAL: No night sweats. No fatigue, malaise, lethargy. No fever or chills. HEENT: Eyes: No visual changes. No eye pain. No eye discharge. ENT: No runny nose. No epistaxis. No sinus pain. No odynophagia. No congestion. RESPIRATORY: Cough and shortness of breath. No hemoptysis. CARDIOVASCULAR: No angina symptoms. No CHF symptoms. No atypical chest pain for CAD. No palpitations. No orthopnea.. GASTROINTESTINAL: No abdominal pain. No nausea or vomiting. No diarrhea or constipation. No hematemesis. No hematochezia. GENITOURINARY: No urgency. No frequency. No dysuria. No hematuria. No obstruct rahel symptoms. No discharge. No pain. No significant abnormal bleeding. MUSCULOSKELETAL: No musculoskeletal pain; no joint swelling. NEUROLOGICAL: Awake, alert, oriented to time, place and person. No headache. No neck pain. No syncope. No seizures. No dizziness. PSYCHIATRIC: Not anxious. No depression. No suicidal thoughts. No homicidal thoughts. SKIN: No rash. No lesions. No wounds. ENDOCRINE: No unexplained weight loss. No weight gain. HEMATOLOGIC/LYMPHATIC: No anemia. No purpura. No petechiae. No prolonged or excessive bleeding. No palpable lymph nodes. PHYSICAL EXAMINATION: GENERAL: The patient is awake, alert and oriented, lying/sitting in bed in no distress. VITAL SIGNS: Temperature 97.4 F, Pulse 70, Respiratory Rate 18, BP 123/70, Pulse Ox 96% HEENT: Head normocephalic, atraumatic. Eyes: Extraocular muscles are intact. Pupils are equal, round and reactive to light and accommodation. Ears: No lesions. Nose appeared normal. Throat: No exudate or erythema. NECK: Supple. No JVD, no carotid bruit. No lymphadenopathy or thyromegaly. LUNGS: Diminished breath sounds. Clear to auscultation. Percussion note normal. Chest symmetrical. HEART: S1, S2, no S3. No murmurs. No cyanosis or clubbing. No ascites. Pulses: Dorsalis pedis and posterior tibial pulses +1 to +2 both sides. ABDOMEN: Soft. Non-tender. Bowel sounds active. No CVA tenderness. No mass felt. EXTREMITIES: No edema. Full range of motion of all extremities, equal. NEUROLOGIC: No focal deficit. Cranial nerves II through XII are grossly intact. No headache. No double vision. SKIN: Not dry. Intact. Turgor-normal. LYMPHATIC: No palpable lymph nodes/no lymphedema. MUSCULOSKELETAL: Normal joints with no swelling. Muscle tone is normal. LAB REVIEW: 12/10/20 05:00 12/10/20 05:00 12/10/20 05:00: Sodium 138.5, Potassium 3.70, Chloride 104.6, Carbon Dioxide 25.5, Anion Gap 12.10, BUN 28.1 H, Creatinine 0.67, Estimated GFR (MDRD) 116.00, BUN/Creatinine Ratio 41.94, Glucose 160.5 H, Calcium 9.11, Total Bilirubin 0.55, AST 27.1, ALT 29.2, Alkaline Phosphatase 106.7, Total Protein 6.14 L, Albumin 3.62, Globulin 2.52, Albumin/Globulin Ratio 1.43 12/10/20 05:00: WBC 9.62, RBC 4.56 L, Hgb 14.1, Hct 41.2 L, MCV 90.4, MCH 30.9, MCHC 34.2, RDW Coeff of Amee 13.9, Plt Count 218, Immature Gran % (Auto) 1.7, Neut % (Auto) 84.6 H, Lymph % (Auto) 9.5 L, [place] % (Auto) 4.0, Eos % (Auto) 0.0, Baso % (Auto) 0.2, Neut # (Auto) 8.2 H, Lymph # (Auto) 0.9, [place] # (Auto) 0.4, Eos # (Auto) 0.0, Baso # (Auto) 0.0, Immature Gran # (Auto) 0.2 ASSESSMENT: Please see below. 1. Right lower lobe pneumonia. 2. Acute respiratory failure. PLAN: 1. Lasix 20 mg IV once this morning before discharge. 2. One more dose of Rocephin to be given before discharge. 3. Discharge home. 4. Omincef 300 mg b.i.d. for 7 days. 5. Prednisone 20 mg b.i.d. times three days, daily for four days. 6. Rx for Symbicort inhaler 160. 7. Albuterol neb t.i.d. 8. Three-step 02 test, will likely need oxygen. 9. Will see in office next week, CM to schedule. Plan and coordination of the patient's care discussed in the presence of Carbider and nurse. CONDITION: Stable SCRIBED BY: DARIN WOODALL [employer] scribed while in presence of service performed by Dr. Lorenzana/Cate Pfeiffer APRN on 12/10/20 ([id number])
--- NOTE | 2020-12-10 11:04 | CM.DICTOOL ---
ADMISSION: 12/06/20 16:46 DISCHARGE: November DATE OF SERVICE: 12/10/20 FINAL DIAGNOSIS RLL PNEUMONIA ACUTE RESPIRATORY FAILURE HX: PAC/SVT - ABLATION PREMATURE ATRIAL CONTRACTIONS ASTHMA COPD DYSLIPIDEMIA ANEURYSM PAD - SEEN BY DR. MOYER GERD B12 DEFICIENCY BPH OSTEOARTHRITIS DJD OF THE SPINE L3 COMPRESSION FRACTURE LEG ULCERS PROCEDURES: ABLATION FOR PAC/SVT - 09/2013 FOUR EYE [id number]; RETINAL/CATARACTS TONSILLECTOMY INGUINAL HERNIA SURGERY L3 COMPRESSION FRACTURE - SURGERY LAST VITALS Temp Pulse Resp BP Pulse Ox 97.4 F L 70 18 123/70 96 12/10/20 05:48 12/10/20 05:48 12/10/20 05:48 12/10/20 05:48 12/10/20 05:48 TAKE THESE MEDICATIONS AT HOME Al Hydroxide/Mg Hydroxide (Mag Hydrox/Al Hydrox/Simeth 30 Ml Cup) 30 ml PO DAILY PRN -- ( NEW) PRN Reason: Heartburn Last Admin: 12/09/20 14:42 Dose: 30 ml Documented by: Albuterol/Ipratropium (Ipratropium/Albuterol Vial.Neb) 3 ml NEB RTTID [facility] -- ( NEW) Last Admin: 12/10/20 04:50 Dose: 3 ml Documented by: Atorvastatin Calcium (Atorvastatin Calcium 20 Mg Tablet) 20 mg PO DAILY [facility] Last Admin: 12/10/20 08:55 Dose: 20 mg Documented by: Bimatoprost (Bimatoprost 0.03% 2.5 Ml Opth Elisa) 1 drop EACHEYE BEDTIME [facility] Last Admin: 12/09/20 21:14 Dose: 1 drop Documented by: Calcium/Vitamin D (Calcium Carbonate/Vitamin D3 500 Mg/5 Mcg(200iu) 1 Each Tablet) 1 each PO DAILY [facility] Last Admin: 12/10/20 08:55 Dose: 1 each Documented by: Diltiazem HCl (Diltiazem Hcl 120 Mg Cap.Er.24h) 120 mg PO DAILY [facility] Last Admin: 12/10/20 08:55 Dose: 120 mg Documented by: Docusate Sodium (Docusate Sodium 100 Mg Capsule) 200 mg PO BID PRN -- ( NEW) PRN Reason: Constipation Last Admin: 12/10/20 08:55 Dose: 200 mg Documented by: Flecainide Acetate (Flecainide Acetate 100 Mg Tablet) 100 mg PO BID [facility] Last Admin: 12/10/20 08:55 Dose: 100 mg Documented by: Gabapentin (Gabapentin 300 Mg Capsule) 900 mg PO TID [facility] Last Admin: 12/10/20 08:54 Dose: 900 mg Documented by: Mirabegron (Mirabegron 25 Mg Tab.Er.24h) 25 mg PO BID [facility] Last Admin: 12/10/20 08:54 Dose: 25 mg Documented by: Multivitamins (Multivitamin 1 Tab) 1 tab PO DAILY [facility] Last Admin: 12/10/20 08:54 Dose: 1 tab Documented by: Non-Formulary Medication (Diclofenac Sodium) 1 gm TP DAILY PRN PRN Reason: MODERATE PAIN Oxybutynin Chloride (Oxybutynin Chloride 5 Mg Tablet) 10 mg PO BID [facility] Last Admin: 12/10/20 08:55 Dose: 10 mg Documented by: Pantoprazole Sodium (Pantoprazole Sodium 40 Mg Tablet.) 40 mg PO BIDCOX SOUTH -- ( CHANGED) Last Admin: 12/10/20 05:40 Dose: 40 mg Documented by: Rivaroxaban (Rivaroxaban 10 Mg Tablet) 20 mg PO DAILY [facility] Last Admin: 12/10/20 08:56 Dose: 20 mg Documented by: OMNICEF 300 MG PO BID X 7 DAYS, START 12/11/2020 -- ( NEW) PREDNISONE 20 MG BID X 3 DAYS THEN DAILY FOR 4 DAYS, START @ 1700 TODAY -- (NEW) SYMBICORT 160-4.5 MCG 2 PUFFS BID, START @ 1700 TODAY -- ( NEW) INCRUSE ELLIPTA 1 INHALATION DAILY -- ( HOME MED) TYLENOL 325MG PO EVERY 4-6 HOURS PRN -- ( HOME MED) ALLERGIES ciprofloxacin [From Cipro] Adverse Reaction (Verified 03/04/20 09:18) DISCONTINUED MEDICATIONS BREO ELLIPTA NEW PRESCRIPTIONS: OMNICEF 300 MG PO BID X 7 DAYS, START 12/11/2020 PREDNISONE 20 MG BID X 3 DAYS THEN DAILY FOR 4 DAYS, START @ 1700 TODAY SYMBICORT 160-4.5 MCG 2 PUFFS BID, START @ 1700 TODAY DUONEB TID , DUE @ 170, TODAY COLACE 200 MG PO BID PRN MYLANTA 30 ML PO QID PRN (INCREASE) PROTONIX 40 MG PO BID AC, NEXT DUE AT 1700 TODAY SMOKING: N/A DISEASE SPECIFIC EDUCATION: BLEEDING PRECAUTIONS PNEUMONIA XARELTO/BLEEDING PRECAUTIONS HOME OXYGEN COVID 19 PRECAUTIONS LAB REVIEW: 12/10/20 05:00 12/10/20 05:00 12/10/20 05:00: Sodium 138.5, Potassium 3.70, Chloride 104.6, Carbon Dioxide 25.5, Anion Gap 12.10, BUN 28.1 H, Creatinine 0.67, Estimated GFR (MDRD) 116.00, BUN/Creatinine Ratio 41.94, Glucose 160.5 H, Calcium 9.11, Total Bilirubin 0.55, AST 27.1, ALT 29.2, Alkaline Phosphatase 106.7, Total Protein 6.14 L, Albumin 3.62, Globulin 2.52, Albumin/Globulin Ratio 1.43 12/10/20 05:00: WBC 9.62, RBC 4.56 L, Hgb 14.1, Hct 41.2 L, MCV 90.4, MCH 30.9, MCHC 34.2, RDW Coeff of Amee 13.9, Plt Count 218, Immature Gran % (Auto) 1.7, Neut % (Auto) 84.6 H, Lymph % (Auto) 9.5 L, [place] % (Auto) 4.0, Eos % (Auto) 0.0, Baso % (Auto) 0.2, Neut # (Auto) 8.2 H, Lymph # (Auto) 0.9, [place] # (Auto) 0.4, Eos # (Auto) 0.0, Baso # (Auto) 0.0, Immature Gran # (Auto) 0.2 PLAN: DISCHARGE: HOME TODAY WITH [facility]- [phone] WILL CONTACT YOU ACTIVITY: UP WITH A WHEELED WALKER AND THERAPY INSTRUCTIONS FREQUENT REST PERIODS WHILE WALKING FREQUENTLY IN THE HOME NO STRENUOUS ACTIVITY, STAY HOME UNTIL MD FOLLOW UP SOCIAL DISTANCING WHEN OUT DIET: HEART HEALTHY MD FOLLOW UP: SEE DR. LORENZANA/ STEFF GREGORIO APRN/ MEGAN URBAN APRN IN THE OFFICE ON SATURDAY, DECEMBER 19, 2020 @ 1:45 PM. OXYGEN: CONTINUOS 2 LITERS A MINUTE PER NASAL CANNULA AND RELATED PRECAUTIONS IN 2 WEEKS CAN CHECK OXYGEN LEVEL WITH PULSE OX AFTER TAKING OXYGEN OFF FOR 15 MINUTES, IF ABOVE 90% CAN LEAVE OFF THEN CHECK PERIODICALLY. MISC: BLEEDING PRECAUTIONS CODE STATUS: FULL CODE MR. DACOSTA IS ALERT AND ORIENTED X 4. HE HAS BEEN TALKATIVE. SOA WITH EXERTION AND QUALIFIED FOR HOME O2 AND TO BE PROVIDED BY [facility] . GETS UP WITH ASSIST OF ONE AND WHEELED WALKER. HAS HAD SOME WEAKNESS. SKIN WARM AND DRY AND INTACT. NUTRITIONAL AND FLUID INTAKE ARE GOOD. CONTINENT OF BOWEL AND BLADDER. LAST BM 12/06/2020. LIVES WITH HIS . [facility] TO FOLLOW UP. MD STEFF BRAR APRN ALYCE HANNAN, APRN
--- NOTE | 2020-12-10 11:34 | PN ---
DATE OF SERVICE: 12/08/20 SUBJECTIVE: 75-year-old white male was hospitalized with right lower lobe pneumonia. The patient's condition has improved. He is feeling better and wants to go home. Cough is much less with Phenergan with Codeine. REVIEW OF SYSTEMS: CONSTITUTIONAL: No night sweats. No fatigue, malaise, lethargy. No fever or chills. HEENT: Eyes: No visual changes. No eye pain. No eye discharge. ENT: No runny nose. No epistaxis. No sinus pain. No sore throat. No odynophagia. No congestion. RESPIRATORY: No cough, no congestion. No hemoptysis. He is short of breath on exertion as usual. CARDIOVASCULAR: Appetite has improved. No angina symptoms. No CHF symptoms. No atypical chest pain for CAD. No palpitations. No PND. No orthopnea. GASTROINTESTINAL: No abdominal pain. No nausea or vomiting. No diarrhea or constipation. No hematemesis. No hematochezia. GENITOURINARY: No urgency. No frequency. No dysuria. No hematuria. No obstructive symptoms. No discharge. No pain. No significant abnormal bleeding. MUSCULOSKELETAL: No musculoskeletal pain; no joint swelling. NEUROLOGICAL: No headache. No neck pain. No syncope. No seizures. No dizziness. PSYCHIATRIC: Not anxious. No depression. No suicidal thoughts. No homicidal thoughts. SKIN: No rash. No lesions. No wounds. ENDOCRINE: No unexplained weight loss. No weight gain. HEMATOLOGIC/LYMPHATIC: No anemia. No purpura. No petechiae. No prolonged or excessive bleeding. No palpable lymph nodes. PHYSICAL EXAMINATION: VITAL SIGNS: Temperature 97.8, pulse 57, respiratory rate 20, BP 126/70, pulse ox 93% with 2L. HEENT: Head normocephalic, atraumatic. Eyes: Extraocular muscles are intact. Pupils are equal, round and reactive to light and accommodation. Ears: No lesions. Nose appeared normal. Throat: No exudate or erythema. NECK: Supple. No JVD, no carotid bruit. No lymphadenopathy or thyromegaly. LUNGS: Decreased breath sounds. Clear to auscultation. Percussion note normal. Chest symmetrical. HEART: S1, S2, no S3. No murmurs. No cyanosis or clubbing. No ascites. Pulses: Dorsalis pedis and posterior tibial pulses +1 to +2 bilaterally. ABDOMEN: Soft. Nontender. Bowel sounds active. No CVA tenderness. No mass felt. EXTREMITIES: No edema. Full range of motion of all extremities, equal. NEUROLOGIC: No focal deficit. Cranial nerves II through XII are grossly intact. No headache. No double vision. SKIN: Not dry. Intact. Turgor - normal. LYMPHATIC: No palpable lymph nodes/no lymphedema. MUSCULOSKELETAL: Normal joints with no swelling. Muscle tone is normal. LABS: Hemoglobin 13.5, hematocrit 39, WBC 9,000, normal differential. Creatinine 0.7, BUN 22, potassium 4.3, glucose 158 with steroids. ASSESSMENT: 1. Right lower lobe pneumonia seems to be resolving clinically. PLAN: 1. Do a chest x-ray. 2. ABG on room air tomorrow. 3. Sliding scale. 4. Discontinue IV Solu-Medrol and put him on Prednisone 20 mg daily. 5. The patient is likely to be discharged tomorrow. 6. Will also evaluate need for oxygen. I think he has oxygen at home. 7. The patient has BMI of 32, strongly advised to lose weight. Advised to lose nearly 30 to 40 lbs so that his breathing capacity and respiratory status can improve along with cardiac status. 8. Will do echocardiogram before discharge to evaluate his shortness of breath and cardiovascular status. The patient has severe peripheral arterial disease and also has ASHD generalized. His prognosis is poor. The patient is noncompliant of his lifestyle. Condition is stable. TIME SPENT: More than 30 minutes. Plan and coordination of the patient's care discussed in the presence of nurse. JOANN
[2020-12-10] MEDS: MYLANTA SUSP PO PRN (12:31)
--- NOTE | 2020-12-10 12:49 | HP ---
DATE OF SERVICE: 12/06/2020 REASON FOR HOSPITALIZATION/HISTORY OF PRESENT ILLNESS: The patient was seen and examined in the emergency room for emergency room visit with cough, congestion and shortness of breath. Actually the patient called my office for him to be seen and he was advised to go to the emergency so that he could be checked for COVID and also chest x-ray and labs. On further investigation in the emergency room the ER doctor found that had severe consolidation infiltrate especially involving right lower lobe suggesting pneumonia. The patient's main problem is cough, congestion, shortness of breath with chills of 2-3 days duration. PAST MEDICAL HISTORY/PAST SURGICAL HISTORY: Reflux disease MRSA Right knee, 01/[address] Dr[address]. Dejesus, 2nd Ablation 11/09 with history of SVT History Aflutter History of dermatitis Dilated cardiomyopathy Chronic bronchitis with severe chronic lung disease Left common iliac aneurysm Left sciatica Right lower lobe pulmonary nodule followed by Dr. Bentley Total knee replacement Obstructive sleep apnea on CPAP Asthmatic bronchitis Status post TURP with Dr. Angelica ZAMUDIO L3 compression fracture Generalized osteoarthritis followed by Dr. Gonzales Status post Ablation for SVT and PACs History of hyperglycemia REVIEW OF SYSTEMS: CONSTITUTIONAL: No night sweats. Fatigue and weakness. No fever or chills. HEENT: Eyes: No visual changes. No eye pain. No eye discharge. ENT: No runny nose. No epistaxis. No sinus pain. No sore throat. No odynophagia. No ear pain. No congestion. RESPIRATORY: Cough and congestion. Sputum yellowish. No hemoptysis. Shortness of breath. CARDIOVASCULAR: No angina symptoms. No CHF symptoms. Right sided pain with cough. Pleuritic type. No palpitations. No PND. No orthopnea. GASTROINTESTINAL: No abdominal pain. No nausea or vomiting. No diarrhea or constipation. No hematemesis. No hematochezia. Appetite has gone down some in last 24 hours. GENITOURINARY: No urgency. No frequency. No dysuria. No hematuria. No obstructive symptoms. No discharge. No pain. No significant abnormal bleeding. MUSCULOSKELETAL: No musculoskeletal pain. No joint swelling. No arthritis. Weakness with shortness of breath otherwise normal. NEUROLOGICAL: No headache. No neck pain. No syncope. No seizures. No dizziness. PSYCHIATRIC: Not anxious. No depression. No suicidal thoughts. No homicidal thoughts. SKIN: No rash. No lesions. No wounds. ENDOCRINE: No unexplained weight loss. No weight gain. HEMATOLOGIC/LYMPHATIC: No anemia. No purpura. No petechiae. No prolonged or excessive bleeding. No palpable lymph nodes. PERSONAL/FAMILY/SOCIAL HISTORY: The patient is and lives with the . He does all activity of daily living. Non-smoker. No alcohol abuse. History of smoking with chronic lung disease. MEDICATIONS: Neurontin Myrbetriq Cardizem Flecainide Lipitor Breo Flomax Pro air HFA Xarelto Oxybutynin Protonix ALLERGIES: Ciprofloxacin PHYSICAL EXAMINATION: GENERAL: The patient is oriented to time, place and person. The patient wants to go home. VITAL SIGNS: Temperature 98.3, pulse 80, respiratory rate 130/84, oxygen saturation 94% on 2 liters. HEENT: Head normocephalic, atraumatic. Eyes: Extraocular muscles are intact. Pupils are equal, round and reactive to light and accommodation. Ears: No lesions. Nose appeared normal. Throat: No exudate or erythema. NECK: Supple. No JVD, no carotid bruit. No lymphadenopathy or thyromegaly. LUNGS: Decreased breath sounds, bilaterally with right sided crepitation. Percussion note normal. Chest symmetrical. HEART: S1, S2, no S3. No murmur. No cyanosis or clubbing. No ascites. Pulses: Dorsalis pedis and posterior tibial pulses +1 bilaterally. ABDOMEN: Soft. Protuberant. Nontender. Bowel sounds active. No CVA tenderness. No mass felt. Increase AP diameter of the chest. EXTREMITIES: No edema. Full range of motion of all extremities, equal. NEUROLOGIC: No focal deficit. Cranial nerves II through XII are grossly intact. No headache, no double vision or headache. SKIN: Not dry. Intact. Turgor - normal. LYMPHATIC: No palpable lymph nodes/no lymphedema. MUSCULOSKELETAL: Normal joints with no swelling. Muscle tone is normal. ASSESSMENT: 1. Respiratory failure with right lower lobe pneumonia 2. Severe chronic lung disease with chronic asthmatic bronchitis 3. Cardiomyopathy 4. History of atrial flutter 5. SVT,status post ablation twice by Dr. Dejesus on Xarelto 6. Bilateral sciatica 7. Bilateral knee replacement 8. L3 compression fracture 9. History of falls 10.Right hip radiculopathy 11.History of right patella fracture 12.Status post MRSA with right knee treated by Dr. Gu December, PLAN: 1. Treat the patient for community acquired pneumonia with Rocephin and Zithromax 2. IV steroids Solu-Cortef 3. Oxygen 2-3 liters per cannula, per minute 4. Inhalers 5. Telemetry 6. Routine telemetry orders with the cardiac markers 7. Continue all the home medications; Neurontin, Flecainide, PO Lipitor,Flomax , Xarelto, Protonix PROGNOSIS: GUARDED TIME SPENT: More than 70 minutes. ADDENDUM: The patient is on Rocephin and Zithromax. Neurontin dose now is 600mg at night. The office note is 900mg TID. Cardizem has been reduced to 120mg at night used to be 180mg before. List of the medications are the same. Lipitor has been reduced to 20mg from 40mg. MTDD
--- NOTE | 2020-12-10 13:19 | PN ---
DATE OF SERVICE: 12/07/2020 SUBJECTIVE: 75 year old white male hospitalized with right lower lobe pneumonia. The patient is feeling somewhat better. Appetite seems to have improved. REVIEW OF SYSTEMS: CONSTITUTIONAL: No night sweats. No fatigue, malaise, lethargy. No fever or chills. HEENT: Eyes: No visual changes. No eye pain. No eye discharge. ENT: No runny nose. No epistaxis. No sinus pain. No sore throat. No odynophagia. No congestion. RESPIRATORY: Mild cough, no congestion. No hemoptysis. Shortness of breath less. CARDIOVASCULAR: No angina symptoms. No CHF symptoms. No atypical chest pain for CAD. No palpitations. No PND. No orthopnea. GASTROINTESTINAL: No abdominal pain. No nausea or vomiting. No diarrhea or constipation. No hematemesis. No hematochezia. GENITOURINARY: No urgency. No frequency. No dysuria. No hematuria. No obstructive symptoms. No discharge. No pain. No significant abnormal bleeding. MUSCULOSKELETAL: No musculoskeletal pain; no joint swelling. NEUROLOGICAL: No headache. No neck pain. No syncope. No seizures. No dizziness. PSYCHIATRIC: Not anxious. No depression. No suicidal thoughts. No homicidal thoughts. SKIN: No rash. No lesions. No wounds. ENDOCRINE: No unexplained weight loss. No weight gain. HEMATOLOGIC/LYMPHATIC: No anemia. No purpura. No petechiae. No prolonged or excessive bleeding. No palpable lymph nodes. PHYSICAL EXAMINATION: VITAL SIGNS: Temperature 97.6, pulse 70, respiratory rate 20, blood pressure 116/66 and pulse ox 93% on 2 liters. HEENT: Head normocephalic, atraumatic. Eyes: Extraocular muscles are intact. Pupils are equal, round and reactive to light and accommodation. Ears: No lesions. Nose appeared normal. Throat: No exudate or erythema. NECK: Supple. No JVD, no carotid bruit. No lymphadenopathy or thyromegaly. LUNGS: Decreased breath sounds but clear to auscultation. Percussion note normal. Chest symmetrical. HEART: S1, S2, no S3. No murmurs. No cyanosis or clubbing. No ascites. Pulses: Dorsalis pedis and posterior tibial pulses +1 to +2 bilaterally. ABDOMEN: Soft. Nontender. Bowel sounds active. No CVA tenderness. No mass felt. EXTREMITIES: No edema. Full range of motion of all extremities, equal. NEUROLOGIC: No focal deficit. Cranial nerves II through XII are grossly intact. No headache. No double vision. SKIN: Not dry. Intact. Turgor - normal. LYMPHATIC: No palpable lymph nodes/no lymphedema. MUSCULOSKELETAL: Normal joints with no swelling. Muscle tone is normal. LABS: Hgb 13.5, hct 39, WBC 9,100 normal differential, creatinine 0.6, BUN 20, potassium 4.2. The patient is COVID negative. The patient already had COVID vaccines done both of them, Moderna nearly a week ago. ASSESSMENT: 1. Right lower lobe pneumonia 2. Chronic lung disease 3. Peripheral arterial disease 4. Dyslipidemia 5. Obesity PLAN: 1. Continue oxygen, steroids, NEBS, antibiotics and inhalers. TIME SPENT: More than 30 minutes. Plan and coordination of the patient's care discussed in the presence of nurse. JOANN
--- NOTE | 2020-12-10 18:31 | ED.PDOC ---
General ED Provider: Dr. TAMMY TALAVERA Chief Complaint: Shortness of Air Stated Complaint: Has developed respiratory congestion which has progressed with increasingly Shortness of breath Time Seen by Provider: 12/06/20 11:15 Mode of Arrival: Wheelchair Information Source: Patient Exam Limitations: No limitations Primary Care Provider: OLY SOUSA Nursing and Triage Documentation Reviewed and Agree: Yes Does patient meet sepsis criteria?: No System Inflammatory Response Syndrome: Not Applicable Sepsis Protocol: For patient's 13 years and over: Temp is 96.8 and below OR 101 and greater Pulse >90 BPM Resp >20/minute Acutely Altered Mental Status Are patient's symptoms suggestive of a new infection, such as: -Pneumonia -Skin, Soft Tissue -Endocarditis -UTI -Bone, Joint Infection -Implantable Device -Acute Abdominal Infection -Wound Infection -Meningitis -Blood Stream Catheter Infection -Unknown Respiratory Complaint Exam Shortness of Air Complaint/Exam Onset/Duration: 24 hr Symptoms Are: Still present and Worse Timing: Constant Initial Severity: Mild Current Severity: Moderate Character: Reports Dyspnea at rest and Dyspnea on exertion Aggravating: Reports Movement and Recumbent position Alleviating: Reports Bronchodilators (helps to decrease symptoms) and Upright position Associated Signs and Symptoms: Reports Cough and Nasal congestion Related History: Reports Similar episode History of Healthcare-Acquired Pneumonia: No Pulmonary Embolism Risk Factors: Reports None Cardiac Risk Factors: Reports None Pseudomonas Risk Factors: Reports None Tuberculosis Risk Factors: Reports None Home Oxygen Use: No Recent Stress Test: No Recent Echo/LV Function: No Respiratory Distress: Moderate Stridor Present: No Tracheal Deviation: No Subcutaneous Emphysema: No Accessory Muscle Use: No Retractions: Not Present Diminished Breath Sounds: Yes Prolonged Expiratory Phase: No Unable to Speak Full Sentences: No Fatigue: Yes Leg Swelling: Yes Tiny's Sign Present: No Grunting Respirations: No Kussmaul Respirations: No Differential Diagnoses: COPD Exacerbation and Pneumonia Quality Indicators For Pneumonia/CAP: Blood Cultures-SCU admit, Antibiotics in 6hr-admit, SpO2 assessed, Empiric Antibiotic Rx, Vital signs and Mental status assessed Review of Systems Review Of Systems Constitutional: Reports No symptoms Eyes: Reports No symptoms Ears, Nose, Mouth, Throat: Reports No symptoms Respiratory: Reports Cough, Short of air and Wheezing Cardiac: Reports No symptoms GI: Reports No symptoms : Reports No symptoms Musculoskeletal: Reports No symptoms Skin: Reports No symptoms Neurological: Reports No symptoms Endocrine: Reports No symptoms Hematologic/Lymphatic: Reports No symptoms All Other Systems: Reviewed and Negative [facility] Medical History BPH (benign prostatic hyperplasia) Cataract Hernia of abdominal wall Family History FATHER Lung cancer Mother Pancreatic cancer Social History Smoking and tobacco status: Former smoker Alcohol intake: current Alcohol intake frequency: 0-2 drinks per day Alcohol type: hard liquor Substance use type: does not use History of recent travel: Yes (uise to [place]) Surgical History (Updated 12/09/20 @ 08:24 by DARIN WOODALL) History of appendectomy History of tonsillectomy Hx of prior ablation treatment Knee joint replacement status Physical Exam Physical Exam Appearance: Reports Well-appearing, Ill-appearing, No pain distress and Well- nourished Ill-appearing: Mild Pain Distress: None Eyes: Reports LESLY, EOMI and Conjunctiva clear ENT: Reports Ears normal, Nose normal and Oropharynx normal Neck: Supple Respiratory: Reports Airway patent, Breath sounds clear, Breath sounds diminished, Respirations nonlabored, Rhonchi and Wheezes Cardiovascular: Reports RRR, Pulses normal, No rub and No murmur GI/: Reports Soft, Nontender, No masses, Bowel sounds normal and No Organomegaly Musculoskeletal: Reports Normal strength, ROM intact, No edema and No calf tenderness Skin: Reports Warm, Dry and Normal color Neurological: Reports Sensation intact, Motor intact, Reflexes intact, Cranial nerves intact, Alert and Oriented Psychiatric: Reports Affect appropriate and Mood appropriate Interpretation Radiology Interpretation Exam Interpreted: CT Scan (No pulmonary arterial thromboembolism. A component of pulmonary arterial hypertension is likely. 2. Severe consolidations/infiltrates especially involving the right lower lobe suggesting pneumonia. Underlying atelectasis may be a contributor. 3. Cardiomegaly. 4. Atherosclerosis.) Physician Notification Case Discussed Physician Notified: Dr Sousa-agreed to admission Time of Notification: 13:30 Critical Care Note Critical Care Note Total Critical Care Time (mins): 30 Course Course Hematology/Chemistry: 12/10/20 05:00 12/10/20 05:00 Orders, Labs, Meds: Lab Review 12/06/20 12/06/20 12/06/20 11:40 12:00 12:04 WBC 12.07 H RBC 4.74 Hgb 14.9 Hct 43.5 MCV 91.8 MCH 31.4 H MCHC 34.3 RDW Coeff of Amee 13.7 Plt Count 156 Immature Gran % (Auto) 0.2 Neut % (Auto) 87.7 H Lymph % (Auto) 4.8 L [place] % (Auto) 7.0 Eos % (Auto) 0.1 Baso % (Auto) 0.2 Neut # (Auto) 10.6 H Lymph # (Auto) 0.6 [place] # (Auto) 0.9 Eos # (Auto) 0.0 Baso # (Auto) 0.0 Immature Gran # (Auto) 0.0 ESR 2 APTT 26.3 Puncture Site Rr Base Excess -2.5 L O2 Saturation 90.2 L ABG pH 7.45 ABG pCO2 31.0 L ABG pO2 56.0 L* ABG HCO3 21.5 ABG Total CO2 22.5 James Test Y Hemoglobin 0.8 Oxyhemoglobin 88.6 L Carboxyhemoglobin 2.1 H Total Hemoglobin 14.6 FiO2 % 21.0 Sodium Potassium Chloride Carbon Dioxide Anion Gap BUN Creatinine Estimated GFR (MDRD) BUN/Creatinine Ratio Glucose Lactic Acid Calcium Total Bilirubin AST ALT Alkaline Phosphatase Total Creatine Kinase Troponin I Total Protein Albumin Globulin Albumin/Globulin Ratio D-Dimer Urine Color Urine Clarity Urine pH Ur Specific Roxie Urine Protein Urine Glucose (UA) Urine Ketones Urine Blood Urine Nitrite Urine Bilirubin Urine Urobilinogen Ur Leukocyte Esterase Urine Microscopic RBC Urine Microscopic WBC Ur Squamous Epith Cells Urine Mucus Urine Opiates Screen Ur Oxycodone Screen Urine Methadone Screen Ur Propoxyphene Screen Ur Barbiturates Screen U Tricyclic Antidepress Ur Phencyclidine Scrn Ur Amphetamine Screen U Methamphetamines Scrn U Benzodiazepines Scrn Urine Cocaine Screen U Cannabinoids Screen Adenovirus (PCR) B. pertussis DNA (PCR) B.parapertussis DNA PCR C. pneumoniae DNA (PCR) Coronavirus OC43 (PCR) Coronavirus HKU1 (PCR) Coronavirus 229E (PCR) Coronavirus NL63 (PCR) Human Metapneumovir PCR Influenza Type A (PCR) Influenza B (RT-PCR) M. pneumoniae (PCR) Parainfluenza 1 (PCR) Parainfluenza 2 (PCR) Parainfluenza 3 (PCR) Parainfluenza 4 (PCR) RSV (PCR) Entero/Rhino (PCR) SARS-CoV-2 (PCR) 12/06/20 12/06/20 12/06/20 12:04 12:04 12:04 WBC RBC Hgb Hct MCV MCH MCHC RDW Coeff of Amee Plt Count Immature Gran % (Auto) Neut % (Auto) Lymph % (Auto) [place] % (Auto) Eos % (Auto) Baso % (Auto) Neut # (Auto) Lymph # (Auto) [place] # (Auto) Eos # (Auto) Baso # (Auto) Immature Gran # (Auto) ESR APTT Puncture Site Base Excess O2 Saturation ABG pH ABG pCO2 ABG pO2 ABG HCO3 ABG Total CO2 James Test Hemoglobin Oxyhemoglobin Carboxyhemoglobin Total Hemoglobin FiO2 % Sodium 137.9 Potassium 3.97 Chloride 103.8 Carbon Dioxide 25.7 Anion Gap 12.37 BUN 26.1 H Creatinine 0.84 Estimated GFR (MDRD) 89.00 BUN/Creatinine Ratio 31.07 Glucose 136.0 H Lactic Acid 2.29 H Calcium 9.53 Total Bilirubin 1.14 AST 26.4 ALT 22.7 Alkaline Phosphatase 101.9 Total Creatine Kinase 42.7 L Troponin I < 0.012 Total Protein 6.27 L Albumin 3.81 Globulin 2.46 Albumin/Globulin Ratio 1.54 D-Dimer 623.81 H Urine Color Urine Clarity Urine pH Ur Specific Roxie Urine Protein Urine Glucose (UA) Urine Ketones Urine Blood Urine Nitrite Urine Bilirubin Urine Urobilinogen Ur Leukocyte Esterase Urine Microscopic RBC Urine Microscopic WBC Ur Squamous Epith Cells Urine Mucus Urine Opiates Screen Ur Oxycodone Screen Urine Methadone Screen Ur Propoxyphene Screen Ur Barbiturates Screen U Tricyclic Antidepress Ur Phencyclidine Scrn Ur Amphetamine Screen U Methamphetamines Scrn U Benzodiazepines Scrn Urine Cocaine Screen U Cannabinoids Screen Adenovirus (PCR) B. pertussis DNA (PCR) B.parapertussis DNA PCR C. pneumoniae DNA (PCR) Coronavirus OC43 (PCR) Coronavirus HKU1 (PCR) Coronavirus 229E (PCR) Coronavirus NL63 (PCR) Human Metapneumovir PCR Influenza Type A (PCR) Influenza B (RT-PCR) M. pneumoniae (PCR) Parainfluenza 1 (PCR) Parainfluenza 2 (PCR) Parainfluenza 3 (PCR) Parainfluenza 4 (PCR) RSV (PCR) Entero/Rhino (PCR) SARS-CoV-2 (PCR) 12/06/20 12/06/20 12/06/20 12:29 14:47 14:47 WBC RBC Hgb Hct MCV MCH MCHC RDW Coeff of Amee Plt Count Immature Gran % (Auto) Neut % (Auto) Lymph % (Auto) [place] % (Auto) Eos % (Auto) Baso % (Auto) Neut # (Auto) Lymph # (Auto) [place] # (Auto) Eos # (Auto) Baso # (Auto) Immature Gran # (Auto) ESR APTT Puncture Site Base Excess O2 Saturation ABG pH ABG pCO2 ABG pO2 ABG HCO3 ABG Total CO2 James Test Hemoglobin Oxyhemoglobin Carboxyhemoglobin Total Hemoglobin FiO2 % Sodium Potassium Chloride Carbon Dioxide Anion Gap BUN Creatinine Estimated GFR (MDRD) BUN/Creatinine Ratio Glucose Lactic Acid Calcium Total Bilirubin AST ALT Alkaline Phosphatase Total Creatine Kinase Troponin I Total Protein Albumin Globulin Albumin/Globulin Ratio D-Dimer Urine Color Tabitha Urine Clarity Clear Urine pH 5.5 Ur Specific Roxie 1.025 Urine Protein Negative Urine Glucose (UA) Negative Urine Ketones Trace H Urine Blood Negative Urine Nitrite Negative Urine Bilirubin Negative Urine Urobilinogen 1.0 H Ur Leukocyte Esterase Negative Urine Microscopic RBC 2-5 Urine Microscopic WBC 0-2 Ur Squamous Epith Cells Not present Urine Mucus 2+ Urine Opiates Screen Negative Ur Oxycodone Screen Negative Urine Methadone Screen Negative Ur Propoxyphene Screen Negative Ur Barbiturates Screen Negative U Tricyclic Antidepress Negative Ur Phencyclidine Scrn Negative Ur Amphetamine Screen Negative U Methamphetamines Scrn Negative U Benzodiazepines Scrn Negative Urine Cocaine Screen Negative U Cannabinoids Screen Negative Adenovirus (PCR) Not detected B. pertussis DNA (PCR) Not detected B.parapertussis DNA PCR Not detected C. pneumoniae DNA (PCR) Not detected Coronavirus OC43 (PCR) Not detected Coronavirus HKU1 (PCR) Not detected Coronavirus 229E (PCR) Not detected Coronavirus NL63 (PCR) Not detected Human Metapneumovir PCR Not detected Influenza Type A (PCR) Not detected Influenza B (RT-PCR) Not detected M. pneumoniae (PCR) Not detected Parainfluenza 1 (PCR) Not detected Parainfluenza 2 (PCR) Not detected Parainfluenza 3 (PCR) Not detected Parainfluenza 4 (PCR) Not detected RSV (PCR) Not detected Entero/Rhino (PCR) Detected H SARS-CoV-2 (PCR) Not detected Orders Category Date Time Status ABG DRAW REQUEST Stat CARDIO 12/06/20 11:43 Completed EKG-(ED ONLY) Stat CARDIO 12/06/20 11:43 Completed METERED DOSE INHALATION Routine CARDIO 12/06/20 11:45 Completed OXYGEN Routine CARDIO 12/06/20 11:43 Completed OXYGEN Routine CARDIO 12/06/20 15:21 Completed ACTIVITY .BR with BRP CARE 12/06/20 15:22 Completed BLOOD GLUCOSE MONITORING 0630,1100,1700,2100 CARE 12/06/20 15:23 Completed INTAKE & OUTPUT Q8HR CARE 12/06/20 15:22 Completed NPO REMINDER: IMAGING ONCE CARE 12/06/20 13:16 Completed TELEMETRY MONITORING TELE CARE 12/06/20 15:20 Completed VITAL SIGNS Q8HR CARE 12/06/20 15:22 Completed REGULAR DIET DIETARY 12/06/20 Lunch Completed IV [ED IV/MEDIPORT/POWERPORT] .ONCE EMERGENCY 12/06/20 13:33 Completed OXYGEN [ED APPLY O2] .ONCE EMERGENCY 12/06/20 13:17 Completed ABG COOX Stat LAB 12/06/20 11:40 Completed BLOOD CULTURE (ED ONLY) Stat LAB 12/06/20 12:04 Results CBC W/ AUTO DIFF DAILY@0600 LAB 12/07/20 05:10 Completed CBC W/ AUTO DIFF DAILY@0600 LAB 12/08/20 05:05 Completed CBC W/ AUTO DIFF Stat LAB 12/06/20 12:04 Completed CMP [COMPREHENSIVE METABOLIC PANEL] Stat LAB 12/06/20 12:04 Completed COMPREHENSIVE METABOLIC PANEL DAILY@0600 LAB 12/07/20 05:10 Completed COMPREHENSIVE METABOLIC PANEL DAILY@0600 LAB 12/08/20 05:05 Completed CPK [CREATINE KINASE] Stat LAB 12/06/20 12:04 Completed D-DIMER Stat LAB 12/06/20 12:04 Completed ESR Stat LAB 12/06/20 12:04 Completed LACTIC ACID Stat LAB 12/06/20 12:04 Completed PARTIAL THROMBOPLASTIN TIME Stat LAB 12/06/20 12:00 Completed RESPIRATORY PANEL 2.1 (PCR) Stat LAB 12/06/20 12:29 Completed TROPONIN I Stat LAB 12/06/20 12:04 Completed UA [URINALYSIS C & S IF INDICATED] Stat LAB 12/06/20 14:47 Completed URINE DRUG SCREEN (RAPID FOR ED) [DRUG SCREEN, URINE, LAB 12/06/20 14:47 Completed RAPID] Stat 0.9 % Sodium Chloride [Saline Flush] MEDS 12/06/20 13:33 Discontinued 1 syr IVF PRN PRN Acetaminophen [Tylenol] MEDS 12/06/20 15:21 Discontinued 650 mg PO Q4H PRN Albuterol Inhaler(with Spacer) [Ventolin Hfa (Per Puff- MEDS 12/06/20 11:43 Discontinued with Spacer)] 2 puff IH ONCE STA Azithromycin [Zithromax] MEDS 12/06/20 15:21 Discontinued 500 mg PO ONCE STA Ceftriaxone/D5w 1 gm Premix [Rocephin 1 gm/50 ml D5w] MEDS 12/06/20 15:00 Discontinued 1 gm in 50 ml IV DAILY Enoxaparin Sodium [Lovenox] MEDS 12/06/20 15:30 Discontinued 40 mg SUBCUT DAILY Methylprednisolone Sod Succ/Pf [Solu-Medrol 125 mg] MEDS 12/06/20 15:21 Disc ontinued 125 mg IVP ONCE STA Ondansetron HCl/Pf [Zofran 4 mg/2 ml] MEDS 12/06/20 15:21 Discontinued 4 mg IVP Q6H PRN Potassium Chloride in 0.9%NaCl [Sodium Chloride 0.9%- MEDS 12/06/20 15:30 Discontinued KCl 20 Meq] 1,000 ml IV 70 mls/hr Sodium Chloride 0.9% [Sodium Chloride] 1,000 ml MEDS 12/06/20 13:33 Discontinued IV BOLUS RESUSCITATION STATUS Routine OTHERS 12/06/20 15:[address] CHEST PE PROTOCOL Stat RADS 12/06/20 13:16 Completed PT CONSULT Routine THERAPIES 12/06/20 Ordered Medications Discontinued Medications Generic Name Dose Route Start Last Admin Trade Name Freq PRN Reason Stop Dose Admin Acetaminophen 650 mg 12/06/20 15:21 12/10/20 04:43 Acetaminophen 325 Mg Tablet PO 650 mg Q4H PRN Administration Fever Al Hydroxide/Mg Hydroxide 30 ml 12/09/20 11:20 12/10/20 12:31 Mag Hydrox/Al Hydrox/Simeth 30 Ml Cup PO 30 ml DAILY PRN Administration Heartburn Albuterol Sulfate 2 puff 12/06/20 11:43 12/06/20 12:17 Albuterol Sulfate (Ventolin Hfa) 18 Gm 1 Puff With Spacer IH 12/06/20 11:44 2 puff ONCE STA Administration Albuterol Sulfate 2 puff 12/06/20 20:00 12/09/20 04:40 Albuterol Sulfate (Ventolin Hfa) 18 Gm 1 Puff With Spacer IH 2 puff RTQID RADHA Administration Albuterol/Ipratropium 3 ml 12/09/20 14:00 12/10/20 12:52 Ipratropium/Albuterol Vial.Neb NEB 3 ml RTTID RADHA Administration Atorvastatin Calcium 20 mg 12/07/20 09:00 12/10/20 08:55 Atorvastatin Calcium 20 Mg Tablet PO 20 mg DAILY RADHA Administration Azithromycin 500 mg 12/06/20 15:21 12/06/20 16:21 Azithromycin 250 Mg Tablet PO 12/06/20 15:22 500 mg ONCE STA Administration Azithromycin 500 mg 12/07/20 13:30 12/08/20 08:39 Azithromycin 250 Mg Tablet PO 12/08/20 23:59 500 mg DAILY RADHA Administration Bimatoprost 1 drop 12/07/20 09:00 12/07/20 09:13 Bimatoprost 0.03% 2.5 Ml Opth Elisa EACHEYE 1 drop DAILY RADHA Administration Bimatoprost 1 drop 12/08/20 21:00 12/09/20 21:14 Bimatoprost 0.03% 2.5 Ml Opth Elisa EACHEYE 1 drop BEDTIME RADHA Administration Budesonide 1 mg 12/09/20 20:00 12/10/20 04:50 Budesonide 1 Mg/2 Ml Vial.Neb NEB 1 mg 06,1999 RADHA Administration Budesonide/Formoterol Fumarate 1 puff 12/07/20 21:00 12/09/20 09:04 Budesonide/Formoterol Fumarate 160/4.5 Mcg Inhaler IH 1 puff BID RADHA Administration Calcium/Vitamin D 1 each 12/07/20 09:00 Calcium Carbonate/Vitamin D3 500 Mg/5 Mcg(200iu) 1 Each Tablet PO DAILY RADHA Calcium/Vitamin D 1 each 12/07/20 09:00 12/10/20 08:55 Calcium Carbonate/Vitamin D3 500 Mg/5 Mcg(200iu) 1 Each Tablet PO 1 each DAILY RADHA Administration Diltiazem HCl 120 mg 12/07/20 09:00 12/10/20 08:55 Diltiazem Hcl 120 Mg Cap.Er.24h PO 120 mg DAILY RADHA Administration Docusate Sodium 200 mg 12/08/20 12:06 12/10/20 08:55 Docusate Sodium 100 Mg Capsule PO 200 mg BID PRN Administration Constipation Enoxaparin Sodium 40 mg 12/06/20 15:30 12/06/20 17:17 Enoxaparin Sodium 40 Mg/0.4 Ml Syr SUBCUT Not Given DAILY RADHA Flecainide Acetate 100 mg 12/06/20 21:00 12/10/20 08:55 Flecainide Acetate 100 Mg Tablet PO 100 mg BID RADHA Administration Furosemide 20 mg 12/09/20 14:10 12/09/20 17:22 Furosemide Inj 20 Mg/2 Ml Vial IVP 12/09/20 14:11 20 mg ONCE STA Administration Furosemide 20 mg 12/10/20 08:26 12/10/20 08:46 Furosemide Inj 20 Mg/2 Ml Vial IVP 12/10/20 08:27 20 mg ONCE STA Administration Gabapentin 600 mg 12/07/20 09:00 Gabapentin 300 Mg Capsule PO DAILY RADHA Gabapentin 600 mg 12/06/20 21:00 12/06/20 21:42 Gabapentin 300 Mg Capsule PO 600 mg BEDTIME RADHA Administration Gabapentin 900 mg 12/07/20 09:00 12/10/20 08:54 Gabapentin 300 Mg Capsule PO 900 mg TID RADHA Administration Gabapentin 300 mg 12/06/20 22:33 12/06/20 23:15 Gabapentin 300 Mg Capsule PO 12/06/20 22:34 300 mg ONCE STA Administration Sodium Chloride 1,000 mls @ 1,000 mls/hr 12/06/20 13:33 12/06/20 14:00 Sodium Chloride IV 12/06/20 14:32 1,000 mls/hr BOLUS STA Administration CEFTRIAXONE/D5W 1 GM PREMIX 1 gm in 50 mls @ 75 mls/hr 12/06/20 15:00 12/09/20 09:00 Rocephin 1 Gm/50 Ml D5w IV 12/09/20 14:59 75 mls/hr DAILY RADHA Administration Potassium Chloride/Sodium Chloride 1,000 mls @ 70 mls/hr 12/06/20 15:30 12/09/20 04:22 Sodium Chloride 0.9%-Kcl 20 Meq IV 70 mls/hr .[id number] RADHA Administration CEFTRIAXONE/D5W 1 GM PREMIX 1 gm in 50 mls @ 75 mls/hr 12/10/20 08:27 12/10/20 08:54 Rocephin 1 Gm/50 Ml D5w IV 12/10/20 09:06 75 mls/hr ONCE STA Administration Methylprednisolone Sodium Succinate 125 mg 12/06/20 15:21 12/06/20 16:21 Methylprednisolone Sod Succ/Pf 125 Mg/2 Ml Vial IVP 12/06/20 15:22 125 mg ONCE STA Administration Methylprednisolone Sodium Succinate 125 mg 12/07/20 21:30 12/10/20 12:11 Methylprednisolone Sod Succ/Pf 125 Mg/2 Ml Vial IVP Not Given Q6HR RADHA Mirabegron 25 mg 12/06/20 21:00 12/10/20 08:54 Mirabegron 25 Mg Tab.Er.24h PO 25 mg BID RADHA Administration Multivitamins 1 tab 12/07/20 09:00 12/10/20 08:54 Multivitamin 1 Tab PO 1 tab DAILY RADHA Administration Non-Formulary Medication 250 tab 12/07/20 09:00 Calcium Phosphate-Vitamin D3 [Caltrate Gummy Bites] PO DAILY RADHA Non-Formulary Medication 1 gm 12/06/20 19:33 Diclofenac Sodium TP DAILY PRN MODERATE PAIN Non-Formulary Medication 200 inh 12/07/20 09:00 12/07/20 10:56 Fluticasone Furoate-Vilanterol [Breo Ellipta] IH Not Given DAILY RADHA Non-Formulary Medication 62.5 inh 12/07/20 09:00 12/07/20 10:57 Umeclidinium [Incruse Ellipta] IH Not Given DAILY RADHA Ondansetron HCl 4 mg 12/06/20 15:21 Ondansetron Hcl/Pf 4 Mg/2 Ml Sdv IVP Q6H PRN Nausea / Vomiting Oxybutynin Chloride 10 mg 12/06/20 21:00 12/10/20 08:55 Oxybutynin Chloride 5 Mg Tablet PO 10 mg BID RADHA Administration Pantoprazole Sodium 40 mg 12/07/20 06:30 12/09/20 05:37 Pantoprazole Sodium 40 Mg Tablet. PO 40 mg DAILY@0630 RADHA Administration Pantoprazole Sodium 40 mg 12/09/20 17:00 12/10/20 05:40 Pantoprazole Sodium 40 Mg Tablet. PO 40 mg BIDAC RADHA Administration Promethazine HCl/Codeine 5 ml 12/07/20 21:12 12/09/20 21:14 Promethazine/Codeine Syrup 6.25/10 Mg/5 Ml Disp.Syringe PO 5 ml Q6H PRN Administration Cough Rivaroxaban 20 mg 12/06/20 21:00 Rivaroxaban 10 Mg Tablet PO BID RADHA Rivaroxaban 20 mg 12/07/20 09:00 12/10/20 08:56 Rivaroxaban 10 Mg Tablet PO 20 mg DAILY RADHA Administration Sodium Chloride 1 syr 12/06/20 13:33 0.9% Sodium Chloride 10 Ml Disp.Syrin IVF PRN PRN To flush IV Sodium Chloride 1 syr 12/09/20 13:00 12/10/20 12:26 0.9% Sodium Chloride 10 Ml Disp.Syrin IVF Not Given Q8HR RADHA Tiotropium [place] 1 cap 12/07/20 13:00 12/10/20 08:56 Tiotropium [place] 18 Mcg Cap.W.Dev IH 1 cap DAILY RADHA Administration Vital Signs: Temp Pulse Resp BP Pulse Ox 12/06/20 11:03 98.1 F 73 28 H 103/63 85 L Discharge Plan Discharge Patient Disposition: ADMITTED INPATIENT Discharge Problem: Community acquired pneumonia, COPD (chronic obstructive pulmonary disease) ED Provider: TAMMY TALAVERA Condition: Good Physician Progress Note: []
--- NOTE | 2020-12-11 14:14 | ECHO2D ---
Date of Exam: 12/09/2020 Ordering Physician: DR. OLY LORENZANA Room #:110 Reason for Echo: SHORT OF AIR, PAC M-Mode Normal Adult Results LV Dimensions Normal Adult Results AoV Opening excursions >1.6 >1.6 LVEDD-base- 3.5-5.8 6.7 Ao root dimensions 2.0-3.7 3.6 LVESD-base- 3.1-4.6 L. Atrium dimensions 1.9-3.8 5.1 Post. Wall thickness 0.8-1.1 1.3 IV septum (thickness) 0.7-1.2 1.5 Post. Wall excursion 0.72-1.3 NORMAL Septal motion NORMAL Systolic motion R. Ventricular cavity 1.5-2.0 5.1 LVEF 60% 52% Paradoxical septal wall motion NORMAL 2-D : ENLARGED RIGHT VENTRICLE, LEFT VENTRICLE AND LEFT ATRIAL CAVITIES--NORMAL LEFT VENTRICLE CONTRACTILITY--NORMAL VALVES--NO EFFUSION, NO THROMBUS M-MODE: MV: NORMAL AV: CALCIFIC LEAFLET TV: NORMAL PV: NORMAL CHAMBER SIZE: ENLARGED LEFT ATRIAL, LEFT VENTRICLE AND RIGHT VENTRICLE CAVITIES WALL MOTION: NORMAL PERICARDIUM: NORMAL INTERPRETATION: 1. LEFT VENTRICULAR HYPERTROPHY WITH ENLARGED LEFT ATRIAL CAVITY 2. ENLARGED RIGHT VENTRICLE AND LEFT VENTRICLE CAVITIES 3. NORMAL LEFT VENTRICLE CONTRACTILITY 4. CALCIFIC AORTIC VALVES--NO STENOSIS MTDD
--- NOTE | 2020-12-12 11:44 | PN ---
DATE OF SERVICE: 12/09/20 SUBJECTIVE: The patient was seen and examined with the nurse practitioner. The patient's condition seems to have improved. The patient is on IV fluids which has been discontinued. Likely the patient had fluid overload. Will give Lasix 20 mg IV. The patient's echo showed dilated left ventricular and left atrial cavity. LV contractility is normal. The patient was explained about these findings. CONDITION: Stable. PROGNOSIS: Poor considering the patient's multiple medical problems like severe chronic lung disease. The patient has never been a smoker. Mostly his problems are burnout case of asthma, emphysema along with dilated hypertrophic cardiomyopathy, peripheral arterial disease and generalized osteoarthritis. TIME SPENT: More than 30 minutes. Plan and coordination of the patient's care discussed in the presence of nurse. JOANN
--- NOTE | 2020-12-12 13:32 | DS ---
DATE OF SERVICE: 12/10/20 FINAL DIAGNOSIS: 1. RLL PNEUMONIA 2. ACUTE RESPIRATORY FAILURE HX: 3. PAC/SVT - ABLATION 4. PREMATURE ATRIAL CONTRACTIONS 5. ASTHMA 6. COPD 7. DYSLIPIDEMIA 8. ANEURYSM 9. PAD - SEEN BY DR. MOYER 10. GERD 11. B12 DEFICIENCY 12. BPH 13. 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 L3 COMPRESSION FRACTURE 16. LEG ULCERS PROCEDURES: 17. ABLATION FOR PAC/SVT - 09/2013 18. FOUR EYE [id number]; RETINAL/CATARACTS 19. TONSILLECTOMY 20. INGUINAL HERNIA SURGERY 21. L3 COMPRESSION FRACTURE - SURGERY LAST VITALS Temp Pulse Resp BP Pulse Ox 97.4 F L 70 18 123/70 96 12/10/20 05:48 12/10/20 05:48 12/10/20 05:48 12/10/20 05:48 12/10/20 05:48 DISCHARGE INSTRUCTIONS: 1. MD FOLLOW UP: SEE DR. LORENZANA/STEFF GREGORIO APRN/ MEGAN URBAN APRN IN THE OFFICE ON SATURDAY, DECEMBER 19, 2020 @ 1:45 PM. 2. OXYGEN: CONTINUOS 2 LITERS A MINUTE PER NASAL CANNULA AND RELATED PRECAUTIONS IN 2 WEEKS CAN CHECK OXYGEN LEVEL WITH PULSE OX AFTER TAKING OXYGEN OFF FOR 15 MINUTES, IF ABOVE 90% CAN LEAVE OFF THEN CHECK PERIODICALLY. 3. MISC: BLEEDING PRECAUTIONS MEDICATIONS AT DISCHARGE: Al Hydroxide/Mg Hydroxide (Mag Hydrox/Al Hydrox/Simeth 30 Ml Cup) 30 ml PO DAILY PRN -- ( NEW) PRN Reason: Heartburn Last Admin: 12/09/20 14:42 Dose: 30 ml Documented by: Albuterol/Ipratropium (Ipratropium/Albuterol Vial.Neb) 3 ml NEB RTTID RADHA -- ( NEW) Last Admin: 12/10/20 04:50 Dose: 3 ml Documented by: Atorvastatin Calcium (Atorvastatin Calcium 20 Mg Tablet) 20 mg PO DAILY [facility] Last Admin: 12/10/20 08:55 Dose: 20 mg Documented by: Bimatoprost (Bimatoprost 0.03% 2.5 Ml Opth Elisa) 1 drop EACHEYE BEDTIME [facility] Last Admin: 12/09/20 21:14 Dose: 1 drop Documented by: Calcium/Vitamin D (Calcium Carbonate/Vitamin D3 500 Mg/5 Mcg(200iu) 1 Each Tablet) 1 each PO DAILY [facility] Last Admin: 12/10/20 08:55 Dose: 1 each Documented by: Diltiazem HCl (Diltiazem Hcl 120 Mg Cap.Er.24h) 120 mg PO DAILY [facility] Last Admin: 12/10/20 08:55 Dose: 120 mg Documented by: Docusate Sodium (Docusate Sodium 100 Mg Capsule) 200 mg PO BID PRN -- ( NEW) PRN Reason: Constipation Last Admin: 12/10/20 08:55 Dose: 200 mg Documented by: Flecainide Acetate (Flecainide Acetate 100 Mg Tablet) 100 mg PO BID [facility] Last Admin: 12/10/20 08:55 Dose: 100 mg Documented by: Gabapentin (Gabapentin 300 Mg Capsule) 900 mg PO TID [facility] Last Admin: 12/10/20 08:54 Dose: 900 mg Documented by: Mirabegron (Mirabegron 25 Mg Tab.Er.24h) 25 mg PO BID [facility] Last Admin: 12/10/20 08:54 Dose: 25 mg Documented by: Multivitamins (Multivitamin 1 Tab) 1 tab PO DAILY [facility] Last Admin: 12/10/20 08:54 Dose: 1 tab Documented by: Non-Formulary Medication (Diclofenac Sodium) 1 gm TP DAILY PRN PRN Reason: MODERATE PAIN Oxybutynin Chloride (Oxybutynin Chloride 5 Mg Tablet) 10 mg PO BID [facility] Last Admin: 12/10/20 08:55 Dose: 10 mg Documented by: Pantoprazole Sodium (Pantoprazole Sodium 40 Mg Tablet.) [address] [facility] -- ( [facility]) Last Admin: 12/10/20 05:40 Dose: 40 mg Documented by: Rivaroxaban (Rivaroxaban 10 Mg Tablet) 20 mg PO DAILY [facility] Last Admin: 12/10/20 08:56 Dose: 20 mg Documented by: OMNICEF 300 MG PO BID X 7 DAYS, START 12/11/2020 -- ( NEW) PREDNISONE 20 MG BID X 3 DAYS THEN DAILY FOR 4 DAYS, START @ 1700 TODAY -- (NEW) SYMBICORT 160-4.5 MCG 2 PUFFS BID, START @ 1700 TODAY -- ( NEW) INCRUSE ELLIPTA 1 INHALATION DAILY -- ( HOME MED) TYLENOL 325MG PO EVERY 4-6 HOURS PRN -- ( HOME MED) NEW PRESCRIPTIONS: OMNICEF 300 MG PO BID X 7 DAYS, START 12/11/2020 PREDNISONE 20 MG BID X 3 DAYS THEN DAILY FOR 4 DAYS, START @ 1700 TODAY SYMBICORT 160-4.5 MCG 2 PUFFS BID, START @ 1700 TODAY DUONEB TID , DUE @ 1700, TODAY COLACE 200 MG PO BID PRN MYLANTA 30 ML PO QID PRN (INCREASE) PROTONIX 40 MG PO BID AC, NEXT DUE AT 1700 TODAY DISCONTINUED MEDICATIONS: BREO ELLIPTA DIET INSTRUCTIONS: HEART HEALTHY ACTIVITY: UP WITH A WHEELED WALKER AND THERAPY INSTRUCTIONS FREQUENT REST PERIODS WHILE WALKING FREQUENTLY IN THE HOME NO STRENUOUS ACTIVITY, STAY HOME UNTIL MD FOLLOW UP SOCIAL DISTANCING WHEN OUT SMOKING: N/A DISEASE SPECIFIC EDUCATION: BLEEDING PRECAUTIONS PNEUMONIA XARELTO/BLEEDING PRECAUTIONS HOME OXYGEN COVID 19 PRECAUTIONS HOSPITAL COURSE: This patient was hospitalized through the emergency room with pneumonia. The patient was in respiratory failure. The patient was treated with IV antibiotics, Rocephin, Zithromax and steroids. The patient's condition improved. He probably may have gotten an overload of fluids. IV Lasix was used. His condition improved. On discharge he was feeling a lot better. His pneumonia had resolved. He was Covid negative. He already had two vaccines of Covid done prior to hospitalization. On discharge he was afebrile. Practically no cough, breathing better. Appetite had improved. He was discharged on Omnicef and Prednisone. Prednisone was used 20 mg daily twice a day for three days and after that 20 mg daily for three days along with Cephalosporins. The patient has multiple medical conditions like severe chronic lung disease with history of asthma. He was never a smoker. the patient also has peripheral arterial disease and hypertension. He was sent home on oxygen and to be followed as an outpatient. Condition at the time of discharge was stable. TIME SPENT: More than 60 minutes. MTDD
--- NOTE | 2020-12-12 14:02 | PN ---
BILLING 12/06/20 ADMISSION DAY LEVEL 5 12/07/20 INTERMEDIATE 12/08/20 INTERMEDIATE 12/09/20 INTERMEDIATE 12/10/20 D IN DISCHARGE MTDD
== END 2020-12-10 15:35 | disposition home or self-care (01) | DRG 189 ==
LOC: ED 11:02 → MEDSURG A 16:46
PROVIDERS: ADMIT Internal Medicine; ATTEND Internal Medicine
DX: E78.5 Hyperlipidemia, unspecified; J96.00 Acute respiratory failure, unspecified whether with hypoxia or hypercapnia; M54.40 Lumbago with sciatica, unspecified side; Z20.822 Contact with and (suspected) exposure to COVID-19; I42.9 Cardiomyopathy, unspecified; I73.9 Peripheral vascular disease, unspecified